=== PATIENT | female | born 1940 | race Caucasian/White ===

== ENCOUNTER → 2018-01-10 12:58 | Outpatient (CLI) | payer MEDICARE, SELFPAY ==
--- NOTE | 2018-01-10 13:03 | BI_ITS ---
MAMMOGRAPHY - BILATERAL SCREENING REASON FOR EXAM: Female, 77 years old. Routine annual screening examination. PERTINENT HISTORY: Sisters with breast cancer. TECHNIQUE: Digital bilateral breast key (3D mammographic acquisition) in the CC and MLO projections. 2-D mediolateral oblique (MLO) and craniocaudad (CC) views of both breasts were obtained. CAD: Full Field Digital Mammography with Computer Added Detection was performed. COMPARISON: Comparison is made with prior study dated October 29, 2016 and September 11, 2015. FINDINGS: Breast Composition: There are scattered areas of fibroglandular density. There are no dominant masses or suspicious calcifications. Stable benign-appearing bilateral axillary lymph nodes. No other significant abnormalities are identified. There has been no significant change since the prior study. BI/SCREENING MAMM (CAD), BILAT IMPRESSION: Stable bilateral screening mammogram. Yearly follow-up mammogram recommended. (A) ASSESSMENT CATEGORY: BIRADS Category 2: Benign. A letter regarding these results will be sent to the patient by the facility within 30 days. Approximately 10% of breast cancers are not detected by mammography. A normal mammogram should not delay biopsy of a clinically suspicious abnormality. [id number] Electronically Signed: Abrahan Munson MD at 14:20 EDT Tel [phone], Service support ,
== END ==
PROVIDERS: Family Provider Family Medicine; PCP Family Medicine; Visit Provider Family Medicine
DX: Z12.31 Encounter for screening mammogram for malignant neoplasm of breast (principal)
CPT/HCPCS: 77063; 77067

== ENCOUNTER → 2018-12-19 | Outpatient (CLI) | payer MEDICARE, SELFPAY ==
[2018-12-19 15:35] LABS: Absolute Lymphocyte Count 2.41 X10^3/ul (0.83-4.51); Absolute Neutrophil Count 4.9 X10^3/uL (2.0-7.7); Basophil# 0.02 X10^3/uL; Basophil% 0.2 % (0-1); Eosinophil# 0.34 X10^3/uL; Eosinophils% 4.1 % (0-5); Hematocrit 41.3 % (37-47); Hemoglobin 13.4 g/dl (12.0-15.0); Lymphocyte # 2.41 X10^3/ul (4.0); Lymphocyte % 28.8 % (19-41); Mean Corp Hgb Conc 32.4 g/gl (32-36); Mean Corpuscular Volume 92.4 fL (81-99); Mean Platelet Vol. 10.5 fl (6.2-12.0); Monocyte% 8.4 % (0-10); Neutrophil # 4.89 X10^3/uL (2.7-7.7); Neutrophil % 58.4 % (47-70); Platelet Count 252 K/mm3 (150-450); RBC Distribution Width CV 13.1 % (11.6-14.6); RBC Distribution Width SD 43.9 fl (35.1-43.9); Red Blood Count 4.47 M/mm3 (4.2-5.4); White Blood Count 8.4 K/mm3 (4.4-11.0)
[2018-12-19 15:50] LABS: POSITIVE COUNT NO; POSITIVE DIFFERENTIAL NO; POSITIVE MORPHOLOGY NO
[2018-12-19 15:56] LABS: ALB/GLOB Ratio 1.1 RATIO (0.9-2.4); AST(SGOT) 25 U/L (15-37); Alanine Aminotransfer ALT/SGPT 30 U/L (13-56); Albumin, Serum 4.1 g/dL (3.2-5.0); Alkaline Phosphatase 55 U/L (45-117); Anion Gap 7 (5-15); BUN 15 mg/dL (7-18); Chloride 107 mmol/L (98-107); Creatinine, Serum 0.88 mg/dL (0.55-1.02); EST Glomerular Filtration Rate 66 mL/min (>60); Est Glom Filt Rate - Afr Amer 80 mL/min (>60); Globulin 3.6 g/dL (2.2-4.2); Glucose 86 mg/dL (74-106); Potassium 4.6 mmol/L (3.5-5.1); Protein, Total 7.7 g/dL (6.4-8.2); Sodium Level 140 mmol/L (136-145); Thyroid Stim Hormone (TSH) 2.25 uIU/mL (0.358-3.74)
== END | disposition home or self-care (01) ==
LOC: BFHLAB 11:30
PROVIDERS: Family Provider Family Medicine; PCP Family Medicine; Visit Provider Family Medicine
DX: R50.9 Fever, unspecified (principal); F41.9 Anxiety disorder, unspecified
CPT/HCPCS: 36415; 80053; 84443; 85025

== ENCOUNTER → 2019-03-07 | Outpatient (CLI) | payer MEDICARE, SELFPAY ==
--- NOTE | 2019-03-07 15:46 | BI_ITS ---
MAMMOGRAPHY - BILATERAL SCREENING REASON FOR EXAM: Female, 78 years old. Routine annual screening examination. PERTINENT HISTORY: Sisters with breast cancer. Aunt with breast cancer. Remote right excisional breast biopsy. TECHNIQUE: Digital bilateral breast jerica (3D mammographic acquisition) in the CC and MLO projections. 2-D mediolateral oblique (MLO) and craniocaudad (CC) views of both breasts were obtained. CAD: Full Field Digital Mammography with Computer Added Detection was performed. COMPARISON: Comparison is made with prior examination dated January 10, 2018 and October 29, 2016. FINDINGS: Breast Composition: There are scattered areas of fibroglandular density. There is a 4.4 mm x 4 mm nodular density in the deep slightly inferior medial portion of the right breast. Correlation with ultrasound is recommended. Stable benign-appearing bilateral axillary lymph nodes. No other significant abnormalities are identified. BI/SCREEN MAMM (CAD) W/JERICA BILAT IMPRESSION: 4 mm x 4.4 mm nodular density in the deep slightly inferior medial aspect of the right breast. Correlation with ultrasound is recommended. ASSESSMENT CATEGORY: BIRADS Category 0: Incomplete. Need additional imaging evaluation. A letter regarding these results will be sent to the patient by the facility within 30 days. Approximately 10% of breast cancers are not detected by mammography. A normal mammogram should not delay biopsy of a clinically suspicious abnormality. [id number] Electronically Signed: Abrahan Munson, at 8:38 EDT , Service support ,
== END | disposition home or self-care (01) ==
LOC: OPBI 15:44
PROVIDERS: Family Provider Family Medicine; PCP Family Medicine; Referring Provider Family Medicine; Visit Provider Family Medicine
DX: Z12.31 Encounter for screening mammogram for malignant neoplasm of breast (principal)
CPT/HCPCS: 77063; 77067

== ENCOUNTER → 2019-03-14 | Outpatient (CLI) | payer MEDICARE, SELFPAY ==
--- NOTE | 2019-03-14 08:34 | US_ITS ---
STUDY: ULTRASOUND BREAST - RIGHT REASON FOR EXAM: Female, 79 years old. Abnormal screening mammogram. TECHNIQUE: Axial and longitudinal images of the RIGHT breast were performed with a high resolution ultrasound transducer. COMPARISON: Comparison is made with prior mammogram dated March 07, 2019 FINDINGS: RIGHT Breast: The mammographic abnormality corresponds to a 4 mm x 4 mm x 3 mm cyst at the 4:00 position in the breast at 3 cm from nipple. US/Breast Limited Unilateral IMPRESSION: 4 mm x 4 mm x 3 mm cyst at the 4:00 position breast at 3 cm from nipple. ASSESSMENT CATEGORY: BIRADS Category 2: Benign. A letter regarding these results will be sent to the patient by the facility within 30 days. Electronically Signed: Abrahan Munson, at 11:52 EDT , Service support ,
== END | disposition home or self-care (01) ==
LOC: OPUS 08:33
PROVIDERS: Family Provider Family Medicine; PCP Family Medicine; Referring Provider Family Medicine; Visit Provider Family Medicine
DX: R92.8 Other abnormal and inconclusive findings on diagnostic imaging of breast (principal)
CPT/HCPCS: 76642

== ENCOUNTER → 2020-03-28 | Outpatient (CLI) | payer MEDICARE, SELFPAY ==
--- NOTE | 2020-03-28 09:30 | BI_ITS ---
MAMMOGRAPHY - BILATERAL DIAGNOSTIC REASON FOR EXAM: Female, 80 years old. Right breast nodule. PERTINENT HISTORY: TECHNIQUE: Digital bilateral breast key (3D mammographic acquisition) in the CC and MLO projections. 2-D mediolateral oblique (MLO) and craniocaudad (CC) views of both breasts were obtained. CAD: Full Field Digital Mammography with Computer Added Detection was performed. COMPARISON: Comparison is made with prior study dated 03/07/2019 and 01/10/2018. FINDINGS: Breast Composition: There are scattered areas of fibroglandular density. There are no dominant masses or suspicious calcifications. 4 mm x 4.4 mm nodule in the deep inferior medial aspect of the right breast. Correlation with ultrasound is recommended. No other significant abnormalities are identified. There has been no significant change since the prior study. BI/DIAG MAMM W/CAD, BILAT IMPRESSION: Stable bilateral diagnostic mammogram. Correlation with ultrasound of the nodular density in the deep inferior medial portion of the right breast is recommended. ASSESSMENT CATEGORY: BIRADS Category 0: Incomplete. Need additional imaging evaluation. A letter regarding these results will be sent to the patient by the facility within 30 days. Approximately 10% of breast cancers are not detected by mammography. A normal mammogram should not delay biopsy of a clinically suspicious abnormality. Electronically Signed: Abrahan Munson, at 11:13 EDT , Service support ,
--- NOTE | 2020-03-28 09:30 | US_ITS ---
STUDY: ULTRASOUND BREAST - RIGHT REASON FOR EXAM: Female, 80 years old. Abnormal screening mammogram. TECHNIQUE: Axial and longitudinal images of the RIGHT breast were performed with a high resolution ultrasound transducer. # OF IMAGES: 53 COMPARISON: Comparison is made with prior mammogram dated 03/07/2019 and 03/28/2020. FINDINGS: RIGHT Breast: The mammographic abnormality corresponds to a 4 mm x 4 mm x 16: Inhomogeneous nodule at the 4 o''clock position of the breast at 4 cm from nipple. The nodule is taller than it is wide. Posterior acoustical shadowing is seen. A biopsy is recommended. US/Breast Limited Unilateral IMPRESSION: 4 mm x 4 mm x 6 mm hypoechoic solid nodule at the 4 o''clock position of the breast at 4 cm from the nipple. A biopsy recommended. ASSESSMENT CATEGORY: BIRADS Category 4: Suspicious - Biopsy Should Be Considered. A letter regarding these results will be sent to the patient by the facility within 30 days. Electronically Signed: Abrahan Munson, at 11:04 EDT , Service support ,
== END | disposition home or self-care (01) ==
PROVIDERS: PCP Family Medicine; Referring Provider Family Medicine; Visit Provider Family Medicine
DX: N60.01 Solitary cyst of right breast (principal)
CPT/HCPCS: 76642; 77062; 77066; G0279

== ENCOUNTER → 2020-05-09 | Outpatient (CLI) | payer MEDICARE, SELFPAY ==
--- NOTE | 2020-05-09 | IMM_PTH ---
PATIENT: JERO MAIER LOC: [facility] U#:[id number] AGE/SX: 80/F ROOM: RE05/09/[address]: Dr. Joel Holloway MD : 1940 BED: DIS: 05/09/2020 SPEC #: [id number] RECD: 05/10/20 13:48 STATUS: VIKAS REQ #: [id number] JAVAD: 05/09/20 00:[address]: Joel Holloway DEPT: IMMUNOHISTOCHEMISTRY RECD BY: Blaire Mendieta ENTERED: 05/10/20 13:49 SP TYPE: IMMUNO OTHR DR: Dr. Gary Bernal, DO Tissues: Right breast, NOS Procedures: CALPONIN-1 (add) CK5-6 (add) CK8 (add) E-CAD (add) HER2 PEDRO (add) KI-67 (add) P53 (add) IN (add) IN SITU HYBRIDIZATION P40 (add) ER (initial) PHYSICIAN & INSTITUTION [address] [address] SPECIMEN INFORMATION: Tissue Source: Right breast tissue Clinical Info: Abnormal right breast ultrasound Specimen Number: [id number] CPT code: 83137, 59298 x9, 56048 x2 METHODOLOGY: Deparaffinized sections of prefer/formalin-fixed tissue or PAP/DQ stained slides are incubated with monoclonal/polyclonal antibodies/oligonucleotide probes. Localization is made via biotin free immunoperoxidase method. Appropriate controls are performed and reacted as expected. Results on target cell population are indicated in the following table: RESULTS: ANTIBODY / CLONE RESULT E-Cad (ECH-6) positive CK8 ([id number]) positive Calponin-1 (QG465N) negative CK5-6 (D5 & 1684) negative P40 (BC28) negative P53 (DO-7) negative Ki-67 (30-9) positive, low MORPHOMETRIC ANALYSIS ER (clone 6F11) >95%, strong intensity IN (clone 16/1E2) >95%, strong intensity Her-2Neu (clone CB11) 1-2+ The prognostic test for HER2 is performed on formalin-fixed paraffin embedded tissue. A 3+ (positive) staining pattern is defined as intense, homogeneous, complete, circumferential membranous staining in >10% of contiguous tumor cells. A similar weak (2+) staining pattern is interpreted as equivocal. COURTNEY follow-up testing is recommended for all equivocal cases. Positivity/negativity for ER/IN is reported if > or < 1% of the tumor cells are immuno- reactive, respectively. The ASCO/CAP criteria is used for scoring. Reference: Journal of Clinical Oncology, 2013; 31:5120-1459 & 2010; 16:7484-0163. Duration of fixation: 11.5 Hrs; Sample Adequate: Yes. These assays have not been validated on decalcified tissues. Results should be interpreted with caution given the likelihood of false negativity on decalcified specimens. These tests were developed and their performance characteristics determined by [facility]. They may not have been cleared or approved by the U.S. Food and Drug Administration. The FDA has determined that such clearance or approval is not necessary. The above immunohistochemical/dualISH markers are ordered and reviewed by the Pathologist. INTERPRETATION: Right breast, core biopsy: Invasive ductal carcinoma, nuclear grade 2. Positive for estrogen receptors (favorable prognostic indicator). Positive for progesterone receptors (favorable prognostic indicator). Equivocal for overexpression of KMC8obj. SJ:kash 05/13/20 ADDENDUM ADDENDUM ADDENDUM ADDENDUM ADDENDUM ADDENDUM ADDENDUM ADDENDUM ADDENDUM ADDENDUM ADDENDUM ADDENDUM ADDENDUM ADDENDUM ADDENDUM ADDENDUM ADDENDUM ADDENDUM ADDENDUM ADDENDUM ADDENDUM ADDENDUM 05/20/2020 13:22 ADDENDUM 05/20/2020 13:22 ADDENDUM 05/20/2020 13:22 ADDENDUM 05/20/2020 13:22 ADDENDUM 05/20/2020 13:22 IN SITU HYBRIDIZATION (COURTNEY) FOR HER2 Interpretation: Not Amplified / Negative HER2 : CEP-17 Ratio: 1.7 Average HER2 Signal: 2.35 Average CEP-17 Signal: 1.35 Number of Tumor Cells Scanned: 50 Interpretative Information: The INFORM HER2 Dual COURTNEY DNA Probe Cocktail assay is performed on formalin-fixed paraffin embedded tissue and determines HER2 gene status by detecting HER2 copies via silver in situ hybridization (SISH) and Chromosome 17 copies via chromogenic red in situ hybridization on tumor cells. A minimum of 20 cells representing > 10% of contiguous and homogeneous invasive tumor cells were analyzed. HER2 gene status is classified as Non-amplified (HER2/Chr17 ratio < 2.0) or Amplified (HER2/Chr17 ratio greater than or equal to 2.0). If the resulting HER2/Chr17 ratio falls within 1.8 - 2.2 (Borderline), retesting by FISH is recommended. Reference: Meka AC, Macrina AMAYA, Donna DG, et al: Recommendations for Human Epidermal Growth Factor Receptor 2 Testing in Breast Cancer: [place] Society of Clinical Oncology / College of [place] [employer] Clinical Practice Guideline Update. J Clin Oncol 31:9003-1862, 2013. SJ:kash 05/20/20
--- NOTE | 2020-05-09 08:00 | BRBX_PTH ---
PATIENT: JERO MAIER LOC: [facility] U#:[id number] AGE/SX: 80/F ROOM: RE05/09/[address]: Dr. Joel Holloway MD : 1940 BED: DIS: 05/09/2020 SPEC #: [id number] RECD: 05/09/20 11:22 STATUS: VIKAS RECatherine #: [id number] JAVAD: 05/09/20 08:[address]: Joel Holloway DEPT: SURGICAL PATHOLOGY RECD BY: Concepcion Moffett ENTERED: 05/09/20 12:06 SP TYPE: BREAST BX OTHR DR: Dr. Gary Bernal, DO Tissues: Right breast, NOS Procedures: Surgery Specimen Level IV HEADER OPERATION: Right breast biopsy PRE-OP DIAGNOSIS: Abnormal right breast ultrasound TISSUE SUBMITTED: Right breast tissue FIXATION TIME: 11.5 hours MICROSCOPIC DIAGNOSIS Right breast, core biopsy: Invasive ductal carcinoma, nuclear grade 2 (0.6 cm in greatest length). See comment. SJ:kash 05/10/20 COMMENT Immunohistochemistry ([id number]) supports the above diagnosis. ER/OK/Gex7yle studies are being performed on sections of tumor and the results from this study will be reported separately ([id number]). MICROSCOPIC DESCRIPTION Slides are reviewed. GROSS DESCRIPTION Received in fixative is one container labeled with the patient's name and designated right breast. The specimen consists of multiple elongated fragments of light smith soft tissue that in aggregate measure 2 x 0.5 x 0.1 cm. The specimen is totally submitted in one cassette. / AM:kash 05/09/20 TC:0 CPT: 25224 ADDENDUM ADDENDUM ADDENDUM ADDENDUM ADDENDUM ADDENDUM ADDENDUM ADDENDUM 07/09/2020 08:57 ADDENDUM 07/09/2020 08:57 ADDENDUM 07/09/2020 08:57 ADDENDUM 07/09/2020 08:57 ADDENDUM 07/09/2020 08:57 An order for Oncotype testing was received from Dr. Smith. This necessitated case review, block and slide selection by pathologist at [facility]. Breast Cancer Recurrence Score = 8 Results of the complete Oncotype testing ([employer] report) are viewable in EMR under: Reports - Pathology - Lab Pathology Report, Scanned.
[2020-05-09 08:03] VITALS: BMI 33.0
== END | disposition home or self-care (01) ==
LOC: LABSPEC 11:34
PROVIDERS: PCP Family Medicine; Referring Provider Surgery; Visit Provider Surgery
DX: R92.8 Other abnormal and inconclusive findings on diagnostic imaging of breast (principal)
CPT/HCPCS: 88305; 88341; 88342; 88368

== ENCOUNTER 2020-05-28 07:20 | Day surgery (SDC) | payer MEDICARE, SELFPAY ==
[2020-05-16 07:57] VITALS: BMI 33.0
--- NOTE | 2020-05-24 10:02 | EKG12_ITS ---
Test Reason : PRE OP Blood Pressure : / mmHG Vent. Rate : 092 BPM Atrial Rate : 092 BPM P-R Int : 168 ms QRS Dur : 060 ms QT Int : 330 ms P-R-T Axes : 075 063 068 degrees QTc Int : 408 ms Normal sinus rhythm Right atrial enlargement Nonspecific ST abnormality Abnormal ECG Confirmed by DENISE GARRIDO, COLLEEN ([id number]), assistant editor SHANTI ECKERT ([id number]) on 05/27/2020 10:37:11 AM Referred By: Joel Holloway Confirmed By:COLLEEN WALKER MD
--- NOTE | 2020-05-24 10:12 | RAD_ITS ---
STUDY: X-RAY CHEST REASON FOR EXAM: Female, 80 years old. POST OP RIGHT BREAST CA, BREAST CANCER TECHNIQUE: PA and lateral views of the chest. COMPARISON: 06/08/2017 FINDINGS: There is hyperinflation of the lungs consistent with chronic obstructive lung disease (COPD). There is no demonstrated pleural abnormality. Normal size heart. Normal mediastinum and edwige. Normal visualized pulmonary arteries. Normal visualized aortic arch and descending thoracic aorta. Normal visualized thoracic spine. Normal visualized ribs, clavicles, and shoulders. There is no demonstrated abnormality of the visualized soft tissue structures of the upper abdomen. RAD/Chest PA and Lateral IMPRESSION: Emphysema without pneumonia or atelectasis Electronically Signed: Deepak Borrego MD at 17:34 EST Tel , Service support ,
[2020-05-24 11:16] LABS: Hematocrit 42.3 % (37-47); Hemoglobin 13.4 g/dL (12.0-15.0); Mean Corp Hgb Conc 31.7 g/dL (32-36); Mean Corpuscular Hgb 29.7 pg (27.0-32.0); Mean Corpuscular Volume 93.8 fL (81-99); Mean Platelet Vol. 9.7 fl (6.2-12.0); Platelet Count 325 K/mm3 (150-450); RBC Distribution Width CV 12.1 % (11.6-14.6); RBC Distribution Width SD 41.6 fl (35.1-43.9); Red Blood Count 4.51 M/mm3 (4.2-5.4); White Blood Count 8.2 K/mm3 (4.4-11.0)
[2020-05-24 11:53] LABS: ALB/GLOB Ratio 1.2 RATIO (0.9-2.4); AST(SGOT) 23 U/L (15-37); Alanine Aminotransfer ALT/SGPT 32 U/L (13-56); Albumin, Serum 4.3 g/dL (3.2-5.0); Alkaline Phosphatase 62 U/L (45-117); Anion Gap 5 (5-15); BUN 16 mg/dL (7-18); Calcium,Total 10.1 mg/dL (8.5-10.1); Chloride 107 mmol/L (98-107); Creatinine, Serum 0.94 mg/dL (0.55-1.02); EST Glomerular Filtration Rate 61 mL/min (>60); Est Glom Filt Rate - Afr Amer 74 mL/min (>60); Globulin 3.7 g/dL (2.2-4.2); Glucose 101 mg/dL (74-106); Potassium 4.2 mmol/L (3.5-5.1); Sodium Level 137 mmol/L (136-145)
[2020-05-28] VITALS (7 sets, daily range): BP systolic 150–168; BP diastolic 65–102; PULSE 93–100; RESP 14–18; TEMP 36.3–37.2; O2SAT 88–98; BMI 33.3
--- NOTE | 2020-05-28 | AXNB_PTH ---
PATIENT: JERO MAIER LOC: [facility] [place] U#:[id number] AGE/SX: 80/F ROOM: RE05/28/[address]: Dr. Joel Holloway MD : 1940 BED: DIS: 05/28/2020 SPEC #: [id number] RECD: 05/28/20 12:01 STATUS: VIKAS RECatherine #: [id number] JAVAD: 05/28/20 00:[address]: Joel Holloway DEPT: SURGICAL PATHOLOGY RECD BY: Neel Mahmood ENTERED: 05/28/20 12:02 SP TYPE: AX NODE BX OTHR DR: Dr. Gary Bernal, DO Tissues: A - Axillary lymph node, NOS B - Right breast, NOS Procedures: Frozen Section (charge) Frozen Section Add'l ([facility]) Surgery Specimen Level V HEADER OPERATION: Stereotactic wire localization lumpectomy with sentinel lymph node biopsy PRE-OP DIAGNOSIS: Malignant neoplasm of lower inner quadrant right breast, ER positive TISSUE SUBMITTED: A - Right axillary sentinel lymph node, FS, B - Right breast, wire - medial, short suture - anterior, long suture - superior FROZEN SECTION DIAGNOSIS A. Right axillary sentinel lymph nodes, biopsy: Five out of five lymph nodes negative for carcinoma. AM:kash 05/28/20 MICROSCOPIC DIAGNOSIS A. Right axillary sentinel lymph nodes, biopsy: Five out of five lymph nodes, negative for metastatic carcinoma. See comment. B. Right breast, lumpectomy with needle localization: Invasive ductal carcinoma. See cancer summary in the comment section. SJ:kash 06/03/20 COMMENT INVASIVE BREAST CANCER SUMMARY Procedure - lumpectomy with needle localization Specimen laterality - right Invasive tumor: Tumor site - lower inner quadrant as per clinical information. Tumor size - 0.6 x 0.5 cm (measured microscopically). The tumor size is smaller than grossly measured size. Histologic type - invasive ductal carcinoma, not otherwise specified Histologic grade (Bernarda grade): Glandular/tubular differentiation score - 3 Nuclear pleomorphism score - 2 Mitotic count score - 1 Overall grade - grade 2 (score of 6) Tumor focality - single focus of invasive carcinoma Ductal Carcinoma In Situ - not identified Lobular Carcinoma In Situ - not identified Tumor extension: Skin - not present Nipple - not applicable Skeletal muscle - not identified Margins - the tumor is 0.7 cm away from the closest inferior margin. Regional Lymph Nodes: Total number of lymph nodes examined - 5 Number of lymph nodes with macrometastases, micrometastases or isolated tumor cells - 0 Treatment effect - no known presurgical therapy. Lymphvascular invasion - not identified Dermal lymphvascular invasion - not applicable Distant metastasis - not applicable Additional Pathologic Findings - mild fibrocystic changes. Ancillary Studies: Previously performed on same tumor ([id number] / [id number]) ER: Positive (<95%, strong intensity) [place]: Positive (<95%, strong intensity) Etm8ldv by IHC: Equivocal (1-2+) Ewj3rxz by COURTNEY: Negative, not amplified Microcalcifications - not identified Clinical History - Please make reference to previous specimen ([id number]) right breast, core biopsy with diagnosis of invasive ductal carcinoma, nuclear grade 2 (0.6 cm in greatest length). Pathologic Stage: pT1b pN0 MX The above summary is in compliance with [employer] of [place] [employer] (CAP) Cancer Protocols Checklist and [place] Joint Committee on Cancer (AJCC), Staging Manual, 8th Ed. A. The lymph nodes are negative for metastatic carcinoma on multiple levels and Immunohistochemistry for cytokerains.([id number]). MICROSCOPIC DESCRIPTION Slides are reviewed. GROSS DESCRIPTION A - Received fresh for frozen section diagnosis labeled with the patient's name is a specimen designated right axillary sentinel lymph nodes. The specimen consists of a piece of adipose tissue containing multiple nodules measuring 6 x 3 x 2 cm. The nodules consistent with lymph nodes measure 2 cm in greatest dimension. The lymph nodes are submitted in entirety for frozen section diagnosis in four cassettes as follows: 1 - two lymph nodes, 2 - one lymph node, 3 - one lymph node, 4 - one lymph node. / AM:kash 05/28/20 B - Received fresh for OR consultation labeled with the patient's name is a specimen designated right breast. The specimen consists of a wire-guided lumpectomy specimen measuring 8.5 x 6 x 2 cm and weighing 41 gm. The specimen is differentially inked as follows: anterior - yellow, posterior - black, superior - blue, inferior - green, medial - red and lateral - orange. Serial sections reveal a firm, smith-white lesion measuring 1 x 0.6 x 0.5 cm. This lesion is located 0.3 cm from its closest (inferior) margin of resection. The proximity of the lesion to the closest margin is conveyed to the surgeon intraoperatively. / AM:kash 05/28/20 Sections of the rest of the specimen reveal smith-yellow adipose cut surfaces mixed with scant fibrous areas. Catering Service Manager sections are submitted in 12 cassettes as follows: 1 - perpendicular medial, lateral and posterior margins, 2 - perpendicular anterior and superior margins, 3 & 4 - entire tumor with closest inferior margin, 5-12 - account manager sales representative sections adjacent and away from the tumor. Sections are submitted after additional fixation. The tumor is submitted in entirety. / SJ:kash 05/29/20 TC:0 CPT: 08441, 38564 x3, 03013 x2, 45113
--- NOTE | 2020-05-28 | IMM_PTH ---
PATIENT: JERO MIAER LOC: [facility] [place] U#:[id number] AGE/SX: 80/F ROOM: RE05/28/[address]: Dr. Joel Holloway MD : 1940 BED: DIS: 05/28/2020 SPEC #: [id number] RECD: 06/03/20 12:28 STATUS: VIKAS REQ #: [id number] JAVAD: 05/28/20 00:[address]: Joel Holloway DEPT: IMMUNOHISTOCHEMISTRY RECD BY: Blaire Mendieta ENTERED: 06/03/20 12:31 SP TYPE: IMMUNO OTHR DR: Dr. Gary Bernal, DO Tissues: A - Axillary lymph node, NOS Procedures: CK7 (add) Pankeratin (initial) Pankeratin (add) PHYSICIAN & INSTITUTION [place] [address] SPECIMEN INFORMATION: Tissue Source: A - Right axillary sentinel lymph nodes, biopsy Clinical Info: Malignant neoplasm of lower inner quadrant right breast, ER positive Specimen Number: [id number] A1-A4 CPT code: 15042, 64414 x7 METHODOLOGY: Deparaffinized sections of prefer/formalin-fixed tissue or PAP/DQ stained slides are incubated with monoclonal/polyclonal antibodies/oligonucleotide probes. Localization is made via biotin free immunoperoxidase method. Appropriate controls are performed and reacted as expected. Results on target cell population are indicated in the following table: RESULTS: ANTIBODY / CLONE RESULT Block A1 AE1-3 (AE1/AE3/PCK26) negative CK7 (OV-TL12/30) negative Block A2 AE1-3 (AE1/AE3/PCK26) negative CK7 (OV-TL12/30) negative Block A3 AE1-3 (AE1/AE3/PCK26) negative CK7 (OV-TL12/30) negative Block A4 AE1-3 (AE1/AE3/PCK26) negative CK7 (OV-TL12/30) negative These tests were developed and their performance characteristics determined by [facility]. They may not have been cleared or approved by the U.S. Food and Drug Administration. The FDA has determined that such clearance or approval is not necessary. The above immunohistochemical/dualISH markers are ordered and reviewed by the Pathologist. INTERPRETATION: A. Right axillary sentinel lymph nodes, biopsy: Five out of five lymph nodes, negative for metastatic carcinoma. SJ:kash 06/04/20
--- NOTE | 2020-05-28 08:00 | NM_ITS ---
EXAM DESCRIPTION: CLINICAL HISTORY: 80 years Female, Rt breast cancer COMPARISON: None. TECHNIQUE: 1 mCi of technetium 9M filtered sulfur colloid was injected in 4 divided doses in a right periareolar distribution. FINDINGS: The injections were performed in the patient targeted procedure well and was then sent to surgery for breast surgery and lymphatic dissection NM/Lymph Node Injection Only IMPRESSION: 1 mCi of technetium tagged sulfur colloid was subcutaneously injected as described above. Electronically Signed: Anish Roman, at 15:14 EST Tel , Service support ,
[2020-05-28] MEDS: Lactated Ringers 1,000 ML 100 ML IV ×2 (08:10→11:44)
--- NOTE | 2020-05-28 08:56 | BI_ITS ---
SURGICAL BREAST SPECIMEN RADIOGRAPH CLINICAL: Document presence of right breast biopsy specimen. FINDINGS: Specimen shows presence of a localization wire and 2 localization clips in a mass in the right breast lumpectomy specimen. Pathology is pending and an addendum to the biopsy report will be performed after the final pathologic diagnosis is rendered. Electronically Signed: Anish Roman, at 17:21 EST Tel , Service support , BI/Breast Biopsy Specimen
--- NOTE | 2020-05-28 09:37 | PCM.HP.BLA ---
Problem List (1) Breast cancer Status: Acute Qualifiers: History and Physical Date of Admission: 05/28/20 Intake Visit Reasons: Discuss Breast Biopsy Results Chief Complaint: Post op R breast bx-05/09 Body Maker Required: No Is patient in pain?: No Allergies No Known Allergies Allergy (Verified 05/16/20 08:00) Medications omeprazole 10 mg capsule,delayed release 10 mg PO DAILY 05/09/20 [History Confirmed 05/16/20] paroxetine HCl 10 mg tablet tab PO 05/09/20 [History Confirmed 05/16/20] PFSH Medical History Abnormal mammogram of right breast (Acute) Basal cell carcinoma (Acute) Anxiety (Acute) GERD (gastroesophageal reflux disease) (Chronic) Depression (Chronic) Surgical History Hx of breast biopsy (Acute) History of partial hysterectomy (Acute) History of cardiac catheterization (Acute) Family History Father Cancer kidney Mother Diabetes Heart disease Sister Breast cancer Sister Breast cancer Sister Breast cancer Sister Breast cancer Social History (Updated 05/16/20 @ 08:[address] Joel Holloway MD) Smoking Status: Never smoker HPI HPI HPI: JERO MAIER, is a 80 F who presents to the office today for surgical follow-up and discussion regarding a BI-RADS Category 4 density lower inner right breast 3:30 position +4 cm. On May 09, 2020 I did an office consultation and a combined ultrasound-guided needle core biopsy lower inner right breast. 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 0.6 cm in length. Estrogen receptor was greater than 95%. Progesterone receptor greater than 95%. HER-2/martin 1-2+. Intake Visit Reasons: SECOND OPINION/ RIGHT BREAST BIRADS 4 Chief Complaint: abn breast US right Body Maker Required: No Is patient in pain?: No Allergies No Known Allergies Allergy (Verified 05/09/20 08:02) Medications omeprazole 10 mg capsule,delayed release 10 mg PO DAILY 05/09/20 [History Confirmed 05/09/20] paroxetine HCl 10 mg tablet tab PO 05/09/20 [History Confirmed 05/09/20] Is last menstrual period known: No Post menopausal: Yes Patient : No PFSH Medical History (Updated 05/09/20 @ 08:[address] Joel Holloway MD) Abnormal mammogram of right breast (Acute) Basal cell carcinoma (Acute) Anxiety (Acute) GERD (gastroesophageal reflux disease) (Chronic) Depression (Chronic) Surgical History (Updated 05/09/20 @ 07:52 by Maki Hernández) History of partial hysterectomy (Acute) History of cardiac catheterization (Acute) Family History (Updated 05/09/20 @ 08:05 by Maki Hernández) Father Cancer kidney Mother Diabetes Heart disease Sister Breast cancer Sister Breast cancer Sister Breast cancer Sister Breast cancer Social History (Updated 05/09/20 @ 08:[address] Joel Holloway MD) Smoking Status: Never smoker HPI HPI HPI: JERO MAIER, is a 80 F who presents to the office today for surgical consultation regarding abnormal right mammogram and ultrasound. The patient is referred at her own request and by the assistance of Dr. Gary Bernal and a written copy of my surgical consult recommendations will return to him. 80-year-old female. A0. Menarche at age 12. First I was born when she was 18. She did breast-feed. She has 4 sisters all who had breast cancer. She denies any nipple discharge or bleeding. She herself cannot palpate any masses. She has not been on any estrogen replacement therapy. She states that she does wear a mask in public. She denies fever or chills or cough. She states that each winter she will develop a degree of shortness of breath. She has not had any new or acute change this fall. [facility] Imaging Services [address] [place] [address] SCREEN MAMM (CAD) W/JERICA BILAT MR#: [id number] Name: JERO MAIER CRe #:[id number] : 1940F [id number] From: Abrahan Munson MD PCP:Gary Bernal DO Status:REG CLI Study:SCREEN MAMM (CAD) W/JERICA BILAT Date of Exam:03/07/19 Exam#[id number] Ordering Dr: Gary Bernal DO MAMMOGRAPHY - BILATERAL SCREENING REASON FOR EXAM: Female, 78 years old. Routine annual screening examination. PERTINENT HISTORY: Sisters with breast cancer. Aunt with breast cancer. Remote right excisional breast biopsy. TECHNIQUE: Digital bilateral breast jerica (3D mammographic acquisition) in the CC and MLO projections. 2-D mediolateral oblique (MLO) and craniocaudad (CC) views of both breasts were obtained. CAD: Full Field Digital Mammography with Computer Added Detection was performed. COMPARISON: Comparison is made with prior examination dated January 10, 2018 and October 29, 2016. FINDINGS: Breast Composition: There are scattered areas of fibroglandular density. There is a 4.4 mm x 4 mm nodular density in the deep slightly inferior medial portion of the right breast. Correlation with ultrasound is recommended. Stable benign-appearing bilateral axillary lymph nodes. No other significant abnormalities are identified. BI/SCREEN MAMM (CAD) W/JERICA BILAT IMPRESSION: 4 mm x 4.4 mm nodular density in the deep slightly inferior medial aspect of the right breast. Correlation with ultrasound is recommended. ASSESSMENT CATEGORY: BIRADS Category 0: Incomplete. Need additional imaging evaluation. A letter regarding these results will be sent to the patient by the facility within 30 days. Approximately 10% of breast cancers are not detected by mammography. A normal mammogram should not delay biopsy of a clinically suspicious abnormality. [id number] Electronically Signed: Abrahan Munson, at 8:38 EDT , Service support , Diagnostic [facility] Imaging Services [address] [place] [address] DIAG MAMM W/CAD, BILAT MR#: [id number] Name: JERO MAIER #:[id number] : [id number] From: Abrahan Munson MD PCP:Dr. Gary Bernal, Status:REG CLI Study:DIAG MAMM W/CAD, BILAT Date of Exam:03/28/20 Exam#[id number] Ordering Dr: Gary Bernal DO MAMMOGRAPHY - BILATERAL DIAGNOSTIC REASON FOR EXAM: Female, 80 years old. Right breast nodule. PERTINENT HISTORY: TECHNIQUE: Digital bilateral breast jerica (3D mammographic acquisition) in the CC and MLO projections. 2-D mediolateral oblique (MLO) and craniocaudad (CC) views of both breasts were obtained. CAD: Full Field Digital Mammography with Computer Added Detection was performed. COMPARISON: Comparison is made with prior study dated 03/07/2019 and 01/10/2018. FINDINGS: Breast Composition: There are scattered areas of fibroglandular density. There are no dominant masses or suspicious calcifications. 4 mm x 4.4 mm nodule in the deep inferior medial aspect of the right breast. Correlation with ultrasound is recommended. No other significant abnormalities are identified. There has been no significant change since the prior study. BI/DIAG MAMM W/CAD, BILAT IMPRESSION: Stable bilateral diagnostic mammogram. Correlation with ultrasound of the nodular density in the deep inferior medial portion of the right breast is recommended. ASSESSMENT CATEGORY: BIRADS Category 0: Incomplete. Need additional imaging evaluation. A letter regarding these results will be sent to the patient by the facility within 30 days. Approximately 10% of breast cancers are not detected by mammography. A normal mammogram should not delay biopsy of a clinically suspicious abnormality. Electronically Signed: Abrahan Munson, at 11:13 EDT , Service support , [facility] Imaging Services [address] [place] [id number] Breast Limited Unilateral MR#: [id number] Name: JERO MAIER #:[id number] : [id number] From: Abrahan Munson MD PCP:Dr. Gary Bernal, DO Status:REG CLI Study:Breast Limited Unilateral Date of Exam:03/28/20 Exam#[id number] Ordering Dr: Gary Bernal DO STUDY: ULTRASOUND BREAST - RIGHT REASON FOR EXAM: Female, 80 years old. Abnormal screening mammogram. TECHNIQUE: Axial and longitudinal images of the RIGHT breast were performed with a high resolution ultrasound transducer. # OF IMAGES: [id number] COMPARISON: Comparison is made with prior mammogram dated 03/07/2019 and 03/28/2020. FINDINGS: RIGHT Breast: The mammographic abnormality corresponds to a 4 mm x 4 mm x 16: Inhomogeneous nodule at the 4 o''clock position of the breast at 4 cm from nipple. The nodule is taller than it is wide. Posterior acoustical shadowing is seen. A biopsy is recommended. US/Breast Limited Unilateral IMPRESSION: 4 mm x 4 mm x 6 mm hypoechoic solid nodule at the 4 o''clock position of the breast at 4 cm from the nipple. A biopsy recommended. ASSESSMENT CATEGORY: BIRADS Category 4: Suspicious - Biopsy Should Be Considered. A letter regarding these results will be sent to the patient by the facility within 30 days. Electronically Signed: Abrahan Munson, HPI HPI HPI: JERO MAIER, is a 80 F who presents to the office today for ROS General General: No weight change, appetite, fatigue, colon cancer, breast cancer or weakness HEENT HEENT: Yes eye surgery; no difficulty swallowing, eye injury, swollen glands or hoarseness Endo Endocrine: No thyroid disease, diabetes mellitus, thyroid cancer, Hair loss, heat intolerance or cold intolerance Breast Breast: Yes abnormal mammogram and abnormal US; no left breast lump, right breast lump, nipple discharge, breast pain or breast enlargement Musc Musculoskeletal: No back problems, arthritis, rheumatoid arthritis, gout or joint pain Cardio Cardiovascular: No murmur, pacemaker, heart disease, atrial fibrillation, high blood pressure, heart attack, heart stent, palpitations, shortness of breat with exertion or chest pain Psych Psychiatric: Yes depression and anxiety; no hearing voices Resp Respiratory: Yes shortness of breath, No sleep apnea, No cough, No COPD, No asthma, No emphysema, No wheezing Gastro Gastrointestinal: No abdominal pain, No nausea or vomiting, No diarrhea, No constipation, No blood in stool, Yes acid reflux, No hemorrhoids, No ulcers, No gallbladder problem, No black,tarry stools Oli Hematologic: No blood thinners, No blood disorders, No bleeding, No anemia, No blood clots Neuro Neurologic: No weakness Exam Const General: cooperative, healthy appearing, comfortable, no acute distress Nutritional Appearance: obese Orientation: alert, awake HENCA Head: normal to inspection Eyes General: appearance normal, both eyes and all related structures Chest Breast Palpation: No nipple discharge Other: Right breast: No focal mass, no nipple discharge, no axillary or clavicular adenopathy Left breast: No focal mass. No nipple discharge. No axillary or clavicular adenopathy Resp Effort & Inspection: normal respiratory effort Auscultation: clear to auscultation bilaterally Cardio Rate: regular rate Rhythm: regular rhythm Heart Sounds: no murmurs GI Palpation: soft, no hepatosplenomegaly Neuro General: alert Extrem General: no calf tenderness Psych Affect: normal affect Office Procedures Biopsy Provider Documentation Ultrasound-guided needle core biopsy right breast 3:30 position +5 cm Timeout and informed consent was obtained. 80-year-old female was taken to the procedure room placed supine the table slight Trendelenburg. The medial right breast was sterilely prepped and draped. The lesion in question actually was slightly higher and more medially placed than anticipated. I estimated to be approximately 330 position +5 cm. Under ultrasound guidance 1% lidocaine mixed 50-50 with 0.5% Marcaine was instilled as a local anesthetic. A total of 8 cc was used. A small stab incision was created. A 14-gauge Monopty needle was advanced to prefire depth. Pre and post fire films were obtained. 2 marking clips were left in position because I had difficulty seeing the first 1. Pressure was held for hemostasis. 4 separate cores were obtained and these were submitted in formalin for analysis. Steri-Strip Telfa OpSite dressings applied. She was given activity and wound care instructions. She is scheduled return to our office next week for follow-up. Joel Holloway M.D., F.A.C.S. Biopsy Breast Biopsy: [id number] US Guidance Procedure Time Out Time Out Informed consent given: Yes Consent signed: Yes Time out checklist: patient, procedure, site marked/identified, positioning of patient, supplies available, allergies confirmed, team agrees on procedure Time out staff in room: Yes Time out verified: Yes Time out date: 05/09/20 Time out time: 08:06 Assessment & Plan Problems 1. Abnormal mammogram of right breast R92.8 Plan I believe that I have successfully performed today an ultrasound-guided needle core biopsy right breast 3:30 position +5 cm. She tolerated it well. Specimens are submitted in formalin. She will return to my office to discuss pathology next week. I do have concerns regarding the potential etiology of this lesion. Copy: Dr. Gary Holloway M.D., F.A.C.S. Orders Orders: Biopsy Today R92.8 Coding Level of Care Code Attention Roberth Diagnoses Abnormal mammogram of right breast R92.8 Additional Codes Biopsy - Breast Biopsy: [id number] US Guidance (37988) HPI HPI HPI: JERO MAIER, is a 80 F who presents to the office today for ROS General General: No weight change, appetite, fatigue, colon cancer, breast cancer or weakness HEENT HEENT: Yes eye surgery; no difficulty swallowing, eye injury, swollen glands or hoarseness Endo Endocrine: No thyroid disease, diabetes mellitus, thyroid cancer, Hair loss, heat intolerance or cold intolerance Breast Breast: Yes abnormal mammogram and abnormal US; no left breast lump, right breast lump, nipple discharge, breast pain or breast enlargement Musc Musculoskeletal: No back problems, arthritis, rheumatoid arthritis, gout or joint pain Cardio Cardiovascular: No murmur, pacemaker, heart disease, atrial fibrillation, high blood pressure, heart attack, heart stent, palpitations, shortness of breat with exertion or chest pain Psych Psychiatric: Yes depression and anxiety; no hearing voices Resp Respiratory: Yes shortness of breath, No sleep apnea, No cough, No COPD, No asthma, No emphysema, No wheezing Gastro Gastrointestinal: No abdominal pain, No nausea or vomiting, No diarrhea, No constipation, No blood in stool, Yes acid reflux, No hemorrhoids, No ulcers, No gallbladder problem, No black,tarry stools Oli Hematologic: No blood thinners, No blood disorders, No bleeding, No anemia, No blood clots Neuro Neurologic: No weakness Exam Chest Breast Palpation: No nipple discharge Other: Right breast biopsy site is healing well. There is a minimal amount of ecchymosis. No signs of infection. Nontender Cardio Heart Sounds: no murmurs Assessment & Plan Problems 1. Malignant neoplasm of lower-inner quadrant of right breast of female, estrogen receptor positive C50.311; Z17.0 Plan Invasive ductal carcinoma lower inner right breast. Very small lesion measuring approximately 4 mm. I recommend to the patient a stereotactic wire localization with wire localized lumpectomy and right axillary nuclear tracer and blue dye sentinel lymph node biopsy. I have discussed the technique, benefit, risk, alternatives. The patient is aware that I recommend postoperative hematology oncology and radiation oncology consultation. Depending upon the final size of the tumor she may or may not require radiotherapy. She has had an opportunity to ask and have questions answered. We will schedule procedure at her discretion. Copy: Dr. Gary Holloway M.D., F.A.C.S. Coding Level of Care Code Off vis,est,level 2 Diagnoses Malignant neoplasm of lower-inner quadrant of right breast of female, estrogen receptor positive C50.311; Z17.0 ??Breast location: lower inner quadrant of breast ??Estrogen receptor status: positive ??Patient sex: female ??Laterality: right I have re-examined the patient. There are no clinical changes since date of exam. Procedure Criteria Procedure Type: Elective COVID Risk Discussion: The surgeon/proceduralist and patient have discussed in detail the risk of exposure to and/or potential harm posed by the COVID-19 virus with having a surgery/procedure at this time versus the risk of delaying the surgery/procedure. It is not possible to know either the risk of delaying the surgery or procedure or chance of getting an infection with perfect accuracy, but a joint decision was made between the patient and the surgeon/proceduralist to proceed at this time with the scheduled surgery/procedure as indicated on the consent form.
--- NOTE | 2020-05-28 09:38 | DCINST_ITS ---
Discharge Diet: No Restrictions Discharge Activity: May Not Drive - for 2-3 days or while taking narcotic pain meds. May shower in (days): 1 Lifting Restrictions: 10 pounds for 1 week. Call your doctor if your incision/area has: Continuous Slow Oozing, Sudden In creased Bleeding Call your doctor if you observe: Fever of 101 or Higher Suture Line Care: Avoid Pulling/Pushing, Avoid Pinching/Bending Remove Dressing in (days):: 1 - Remove bulky dressing tomorrow. May leave any opsite dressing for 3-4 days[address] Keep dressing in place until your follow-up appointment. Additional Dressing/Incision Instructions:: Remove bulky dressing tomorrow. May leave any opsite dressing for 3-4 days. After you remove the plastic OpSite dressings you may leave the Steri-Strips in place for an additional 1 week and continue to shower over them. Allergies/Adverse Reactions: Allergies No Known Allergies Allergy (Verified 05/16/20 08:00) Medications to take at Discharge omeprazole 10 mg capsule,delayed release 20 mg PO QODAY 05/09/20 paroxetine HCl 10 mg tablet 10 tab PO DAILY 05/09/20 Primary Care Physician: Gary Bernal DO [Primary Care Provider] - Please Follow Up With: Joel Holloway MD - [phone] When: Office appt. in 10 days
--- NOTE | 2020-05-28 09:39 | PCM.OPRPT ---
Problem List (1) Breast cancer Status: Acute Qualifiers: Report of Operation Date of Procedure: 05/28/20 Pre-Operative Diagnosis: Invasive ductal carcinoma lower inner right breast Post-Operative Diagnosis: Same Surgery/Procedure Performed:: Stereotactic wire localization lower inner right breast. Right breast wire localized lumpectomy with blue dye and nuclear tracer right axillary sentinel lymph node biopsy Description of Surgical Findings:: Timeout and informed consent was obtained. 80-year-old female was taken to the stereotactic suite. She was placed prone on the table. The right breast was placed in the medial lateral view. The density in question with marking clips was identified. Stereotactic images were obtained. Digital information was obtained on a single target site. The breast was prepped with Betadine. 1% lidocaine was used as a local anesthetic. 1 cc was used. A Kopan's needle was advanced to depth +15 mm. The wire was displaced. On fast view demonstrated the wire to be in good position. Sterile dressings were applied. She was taken back to the amatory surgery area for planned definitive resection. The patient was taken to the operating room. She underwent general anesthesia. The right arm was carefully wrapped with soft roll and placed at right angles to the table. The right breast was prepped with alcohol. 2 cc of isosulfan blue dye was injected retroareolar massage was performed. Subsequently the right breast and axilla were sterilely prepped and draped. An oblique incision was made in the right axilla. Using a combination of blue dye tracking and nuclear tracer sentinel lymph nodes were identified. Using both the nuclear tracer and blue dye lymph nodes were identified in the right axilla. These were somewhat adherent so I did a slightly more extensive dissection. Electrocautery was used for hemostasis. Hemoclips were placed were indicated. The packet was removed and had a rather high nuclear return. X inspection of the axilla did not suggest significant residual amount. Specimens were sent for analysis. Then I made a transverse incision in the medial left breast based upon the wire. Tedious sharp and blunt dissection was identified because the tumor itself was not readily palpable. I performed a circumferential dissection completely excised the mass this went down to the pectoralis fascia. The wire exited medially a short suture was placed anterior and a long suture superiorly. Mammographic images were obtained showing the 2 marking clips and tumor to be present. Gross analysis revealed a 1 x 0.6 cm tumor with a 3 mm margin inferiorly. I placed for hemoclips at the margins of the tumor resection. Hemostasis was achieved electrocautery. That wound was then closed the deep layer of interrupted 3-0 Vicryl and then a running subcuticular 4-0 Monocryl. The axilla was reinspected and was noted to be dry and it too was closed with a deep layer of interrupted 3-0 Vicryl and then running subicular 4-0 Monocryl. Each site was anesthetized with 0.5% Marcaine. Throughout the procedure total 30 cc was used. Steri-Strips Telfa OpSite bulky dry dressing applied. Sponge and instrument and needle counts were reported to the surgeon to be correct. Blood loss minimal. She tolerated the procedure well was taken to the recovery area in satisfactory condition without apparent complication. Specimen right axillary sentinel lymph nodes and medial right breast lumpectomy. Drains none. Blood loss minimal. Joel Holloway M.D., F.A.C.S. Type of Anesthesia:: General Anesthesiologist: Zak Noriega
[2020-05-28] MEDS: Isosulfan Blue 1% 5 ML Vial (10:05)
[2020-05-28] MEDS: Bupivacaine Mpf 0.5% 30 ML VIAL (10:16)
== END 2020-05-28 13:19 | disposition home or self-care (01) ==
LOC: SDC 07:20 → AC 07:21
PROVIDERS: PCP Family Medicine; Referring Provider Surgery; Visit Provider Surgery
PROC: (CPT 19301; principal; 2020-05-28 09:45)
DX: C50.311 Malignant neoplasm of lower-inner quadrant of right female breast (principal); Z17.0 Estrogen receptor positive status [ER+]; F41.9 Anxiety disorder, unspecified; F32.9 Major depressive disorder, single episode, unspecified; K21.9 Gastro-esophageal reflux disease without esophagitis; R92.8 Other abnormal and inconclusive findings on diagnostic imaging of breast; Z79.899 Other long term (current) drug therapy; Z20.828 Contact with and (suspected) exposure to other viral communicable diseases; Z85.828 Personal history of other malignant neoplasm of skin; Z80.3 Family history of malignant neoplasm of breast
CPT/HCPCS: 00400; 19301; 38525; 19281; 36415; 38792; 71046; 76098; 80053; 85027; 87426; 88305; 88307; 88331; 88332; 88341; 88342; 93005; A9541; C9803; J7120; J2405; Q9968

== ENCOUNTER → 2020-06-27 09:55 | Outpatient (CLI) | payer MEDICARE, SELFPAY ==
[2020-06-17 09:19] VITALS: BMI 33.3
[2020-06-20 13:21] VITALS: BMI 34.5
--- NOTE | 2020-06-27 10:00 | BD_ITS ---
STUDY: DUAL ENERGY X-RAY ABSORPTIOMETRY / DXA REASON FOR EXAM: Female, 80 years old. Age of sabas 54. Pat is 174.4# and 60 and quot; a loss of 1 and quot; per pat. Quit smoking in 1983. Does not exercise. TECHNIQUE: Bone Mineral Density (BMD) measurements of lumbar spine and bilateral hips were obtained. COMPARISON: None. FINDINGS: Lumbar Spine (L1-L4): g/cm2 (1.146) / T-score (-0.5) / Z-score (1.4) Findings are suggestive of normal bone density with a low fracture risk. Left Femur Total: g/cm2 (0.824) / T-score (-1.5) / Z-score (0.6) Left Femoral Neck: g/cm2 (0.758) / T-score (-2.0) / Z-score (0.2) Right Femur Total: g/cm2 (0.851) / T-score (-1.2) / Z-score (0.8) Right Femoral Neck: g/cm2 (0.787) / T-score (-1.8) / Z-score (0.4) BD/Dexa Bone Density Study IMPRESSION: The patient is considered osteopenic as outlined below according to World Ernesto Organization (WHO) criteria with a moderate fracture risk. Reference Information: The T-score is the number of standard deviations above or below the standard which is normal for young adults at their peak bone mineral density. The World Health Organization (WHO) interprets the T-scores as follows: Above -1 Normal bone density Between -1 and -2.5 Osteopenia Equal to / or below -2.5 Osteoporosis As a practical clinical guideline, osteopenia may be graded as follows: Mild -1 through -1.5 Moderate -1.6 through -2.0 Severe -2.1 through -2.4 The Z-score is the number of standard deviations above or below age-matched controls. A Z-score of less than -1.5 would be considered abnormal. References: 1. NIH Osteoporosis and Related Bone Diseases www osteo.org 2. International Society for Clinical Densitometry www iscd.org 3. National Osteoporosis Foundation www nof.org Electronically Signed: Abrahan Munson, at 12:29 EST , Service support ,
== END ==
PROVIDERS: PCP Family Medicine; Referring Provider Internal Medicine Medical Oncology; Visit Provider Internal Medicine Medical Oncology
DX: Z78.0 Asymptomatic menopausal state (principal); C50.919 Malignant neoplasm of unspecified site of unspecified female breast
CPT/HCPCS: 36415; 77080; 80053; 83615; 85025

== ENCOUNTER → 2021-03-31 14:18 | Outpatient (CLI) | payer MEDICARE, SELFPAY ==
[2020-06-20 13:21] VITALS: BMI 34.5
[2020-08-22 14:37] VITALS: BMI 34.8
--- NOTE | 2021-03-31 14:21 | BI_ITS ---
MAMMOGRAPHY - BILATERAL DIAGNOSTIC REASON FOR EXAM: Female, 81 years old. History of right lumpectomy and radiation treatment. PERTINENT HISTORY: Personal history of breast cancer. Sisters with breast cancer. TECHNIQUE: Digital bilateral breast key (3D mammographic acquisition) in the CC and MLO projections. 2-D mediolateral oblique (MLO) and craniocaudad (CC) views of both breasts were obtained. CAD: Full Field Digital Mammography with Computer Added Detection was performed. COMPARISON: Comparison is made with prior study dated 05/28/2020 and 03/28/2012. FINDINGS: Breast Composition: There are scattered areas of fibroglandular density. There are no dominant masses or suspicious calcifications. The patient is status post lumpectomy of the nodular density in the deep inferior medial aspect of the right breast. Postoperative changes as well as overlying skin thickening are seen. Surgical clips are also seen in the right axillary region. No other significant abnormalities are identified. BI/DIAG MAMM W/CAD, BILAT IMPRESSION: Status post lumpectomy with resection of the nodular density in the deep inferior medial aspect of the right breast. Postsurgical changes with scarring and skin thickening are seen. Surgical clips are seen in the right axillary region. One year follow-up recommended. (A) ASSESSMENT CATEGORY: BIRADS Category 2: Benign. A letter regarding these results will be sent to the patient by the facility within 30 days. Approximately 10% of breast cancers are not detected by mammography. A normal mammogram should not delay biopsy of a clinically suspicious abnormality. Electronically Signed: Abrahan Munson MD at 15:21 EDT , Service support ,
== END ==
PROVIDERS: PCP Family Medicine; Referring Provider Student in an Organized Health Care Education/Training Program; Visit Provider Student in an Organized Health Care Education/Training Program
DX: C50.311 Malignant neoplasm of lower-inner quadrant of right female breast (principal); Z17.0 Estrogen receptor positive status [ER+]
CPT/HCPCS: 77066

== ENCOUNTER → 2021-12-08 | Outpatient (CLI) | payer MEDICARE, SELFPAY ==
[2020-06-20 13:21] VITALS: BMI 34.5
== END | disposition home or self-care (01) ==
PROVIDERS: PCP Family Medicine; Visit Provider Family Medicine
DX: U07.1 COVID-19 (principal)
CPT/HCPCS: 87635; U0003; U0005

== ENCOUNTER → 2022-04-24 | Outpatient (CLI) | payer MEDICARE, SELFPAY ==
[2020-06-20 13:21] VITALS: BMI 34.5
--- NOTE | 2022-04-24 08:38 | BI_ITS ---
MAMMOGRAPHY - BILATERAL SCREENING 3-D TOMOSYNTHESIS REASON FOR EXAM: Female, 82 years old. Routine screening PERTINENT HISTORY: Sisters with breast cancer.. TECHNIQUE: 2-D mammograms and 3-D Tomosynthesis of the breast (s) were performed. CAD was performed. COMPARISON: 03/28/2020 FINDINGS: The breast composition is almost entirely fat. Scattered benign calcifications are seen. No dense spiculated masses or suspicious microcalcifications are identified. No architectural distortion is identified. There is no skin thickening or retraction. There has been no significant change since the prior study. BI/SCRN MAMM (CAD)W/JERICA BILAT IMPRESSION: No mammographic signs of malignancy. Routine yearly mammograms recommended. ASSESSMENT CATEGORY: BIRADS Category 1: Negative. A letter regarding these results will be sent to the patient by the facility within 30 days. FOLLOW UP RECOMMENDATION: Yearly follow up mammogram recommended. (A) Approximately 10% of breast cancers are not detected by mammography. A normal mammogram should not delay biopsy of a clinically suspicious abnormality. Electronically Signed: John Soni MD at 9:56 EDT ,
== END | disposition home or self-care (01) ==
LOC: OPBI 08:37
PROVIDERS: PCP Family Medicine; Visit Provider Family Medicine
DX: Z12.31 Encounter for screening mammogram for malignant neoplasm of breast (principal); Z80.3 Family history of malignant neoplasm of breast
CPT/HCPCS: 77063; 77067

== ENCOUNTER → 2023-02-26 | Outpatient (CLI) | payer MEDICARE, SELFPAY ==
[2020-06-20 13:21] VITALS: BMI 34.5
[2023-02-26 15:22] LABS: Absolute Neutrophil Count 4.7 X10^3/uL (2.0-7.7); Basophil# 0.03 X10^3/uL; Basophil% 0.4 % (0-1); Eosinophil# 0.25 X10^3/uL; Eosinophils% 3.3 % (0-5); Hematocrit 41.2 % (37-47); Hemoglobin 13.3 g/dL (12.0-15.0); Lymphocyte % 25.1 % (19-41); Mean Corp Hgb Conc 32.3 g/dL (32-36); Mean Corpuscular Hgb 30.3 pg (27.0-32.0); Mean Corpuscular Volume 93.8 fL (81-99); Mean Platelet Vol. 10.9 fl (6.2-12.0); Monocyte# 0.69 X10^3/uL; Monocyte% 9.1 % (0-10); NRBC Flagged by Analyzer 0 % (0-5); Neutrophil # 4.67 X10^3/uL (2.7-7.7); Neutrophil % 61.8 % (47-70); Platelet Count 239 K/mm3 (150-450); RBC Distribution Width CV 12.3 % (11.6-14.6); RBC Distribution Width SD 43.1 fl (35.1-43.9); Red Blood Count 4.39 M/mm3 (4.2-5.4); White Blood Count 7.6 K/mm3 (4.4-11.0)
[2023-02-26 15:42] LABS: ALB/GLOB Ratio 1.1 RATIO (0.9-2.4); AST(SGOT) 23 U/L (15-37); Alanine Aminotransfer ALT/SGPT 30 U/L (13-56); Albumin, Serum 4.1 g/dL (3.2-5.0); Alkaline Phosphatase 61 U/L (45-117); Anion Gap 5 (5-15); BUN 16 mg/dL (7-18); BUN/Creat Ratio 17.4 RATIO (10-20); Calcium,Total 9.9 mg/dL (8.5-10.1); Chloride 107 mmol/L (98-107); Creatinine, Serum 0.92 mg/dL (0.55-1.02); EST Glomerular Filtration Rate 62 mL/min (>60); Est Glom Filt Rate - Afr Amer 75 mL/min (>60); Globulin 3.8 g/dL (2.2-4.2); Glucose 88 mg/dL (74-106); Potassium 4.4 mmol/L (3.5-5.1); Protein, Total 7.9 g/dL (6.4-8.2); Sodium Level 136 mmol/L (136-145)
== END | disposition home or self-care (01) ==
LOC: BFHLAB 11:18
PROVIDERS: PCP Family Medicine; Referring Provider Family Medicine; Visit Provider Family Medicine
DX: C50.919 Malignant neoplasm of unspecified site of unspecified female breast (principal); K21.9 Gastro-esophageal reflux disease without esophagitis
CPT/HCPCS: 36415; 80053; 85025

== ENCOUNTER → 2023-04-27 | Outpatient (CLI) | payer MEDICARE, SELFPAY ==
[2020-06-20 13:21] VITALS: BMI 34.5
--- NOTE | 2023-04-27 10:03 | BI_ITS ---
MAMMOGRAPHY - BILATERAL SCREENING REASON FOR EXAM: Female, 83 years old. Routine annual screening examination. PERTINENT HISTORY: Personal history of breast cancer. Prior right lumpectomy with radiation. Remote right excisional breast biopsy. Sisters with breast cancer. Aunt with breast cancer. TECHNIQUE: Digital bilateral breast jerica (3D mammographic acquisition) in the CC and MLO projections. 2-D mediolateral oblique (MLO) and craniocaudad (CC) views of both breasts were obtained. CAD: Full Field Digital Mammography with Computer Added Detection was performed. COMPARISON: Comparison is made with prior examination dated April 24, 2022 and March 31, 2021. FINDINGS: Breast Composition: The breasts are almost entirely fatty. There are no dominant masses or suspicious calcifications. Postsurgical changes are seen in the retroareolar region of the right breast and compared with prior lumpectomy. Surgical clips are seen in the right axilla as well as in the deep central medial portion of the right breast. Stable appearance of the small bilateral axillary lymph nodes. No other significant abnormalities are identified. There has been no significant change since the prior study. BI/SCRN MAMM (CAD)W/JERICA BILAT IMPRESSION: Stable bilateral screening mammogram. Yearly follow-up mammogram recommended. (A) ASSESSMENT CATEGORY: BIRADS Category 2: Benign. A letter regarding these results will be sent to the patient by the facility within 30 days. Approximately 10% of breast cancers are not detected by mammography. A normal mammogram should not delay biopsy of a clinically suspicious abnormality. [id number] Electronically Signed: Abrahan Munson MD at 11:12 EDT ,
== END | disposition home or self-care (01) ==
LOC: OPBI 10:01
PROVIDERS: PCP Family Medicine; Referring Provider Family Medicine; Visit Provider Family Medicine
DX: Z12.31 Encounter for screening mammogram for malignant neoplasm of breast (principal); Z85.3 Personal history of malignant neoplasm of breast
CPT/HCPCS: 77063; 77067

== ENCOUNTER → 2023-07-06 | Outpatient (CLI) | payer MEDICARE, SELFPAY ==
[2020-06-20 13:21] VITALS: BMI 34.5
--- NOTE | 2023-07-06 15:25 | CT_ITS ---
EXAM: CT CHEST, ABDOMEN AND PELVIS WITH INTRAVENOUS CONTRAST CLINICAL INDICATION: Breast carcinoma. Back pain. Rule out malignancy. TECHNIQUE: Helically acquired images were obtained of the chest, abdomen and pelvis with intravenous contrast. This CT exam was performed using one or more of the following dose reduction techniques: automated exposure control, adjustment of the mA and/or kV according to patient size, and/or use of iterative reconstruction technique. CONTRAST: IV 100mL Isovue-300 RADIATION DOSE: CTDIvol = 17.15 mGy, DLP = 1527.82 mGy-cm COMPARISON: No relevant prior studies available. FINDINGS: CHEST: LUNGS AND PLEURAL SPACES: Peripheral reticulation with traction bronchiectasis in the right lower lobe more than left lower lobe. Few scattered centrilobular cysts in both lungs. Prominent thin-walled cyst in the right lung base. Mild pulmonary hyperinflation and flattening of the hemidiaphragms. No mass. No pleural effusion or thickening. No pneumothorax. HEART: Unremarkable. Heart size is normal. Normal cardiac size. No visible coronary artery calcifications. Normal pericardium. MEDIASTINUM: Small hiatal hernia. No mediastinal or hilar adenopathy. Esophagus is unremarkable. THYROID: Unremarkable. No thyroid lesions. ABDOMEN: LIVER: Unremarkable. Homogeneous. No focal mass. GALLBLADDER AND BILE DUCTS: Contracted gallbladder. No calcified gallstones. No gallbladder distention or wall edema. No intra- or extrahepatic biliary ductal dilation. PANCREAS: Unremarkable. No focal cystic or solid mass. SPLEEN: Unremarkable. Normal size without focal cystic or solid mass. ADRENALS: Unremarkable. No nodules. KIDNEYS AND URETERS: Unremarkable. Normal renal size and position. No hydronephrosis. STOMACH AND BOWEL: Unremarkable. No stomach or bowel distention. No focal inflammatory change. PELVIS: APPENDIX: No evidence of acute appendicitis. BLADDER: Unremarkable. No suspicious abnormality of the empty urinary bladder. REPRODUCTIVE: Unremarkable as visualized. No mass. CHEST, ABDOMEN and PELVIS: INTRAPERITONEAL SPACE: Unremarkable. No ascites or other fluid collection. No free air. BONES/JOINTS: Mild degenerative anterolisthesis of L4 on L5. No lytic or blastic metastatic disease. SOFT TISSUES: Abnormal thickening of the skin of the right breast. No discrete abdominal or pelvic wall hernia. 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 Calcified plaques in the abdominal aorta, more along the infrarenal abdominal aorta. Calcified plaque at the origin of the SMA without obvious significant stenosis. Calcified plaques in both common iliac arteries, external iliac arteries and internal iliac arteries. No thoracic aortic aneurysm. LYMPH NODES: Multiple prominent lymph nodes in both sides of the trachea, in the anterior carinal space, the left AP window and smaller lymph nodes in both edwige. CT/CT Chest, Abd, Pel w/Contrast IMPRESSION: 1. Prominent lymph nodes in both sides of the trachea, in the anterior carinal space, left AP window and smaller lymph nodes in both edwige. Whole body PET/CT fusion scan will be more helpful in determining roxie metastases. 2. 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 3. Abnormal thickening of the skin in the right breast. This may be related to the clinical history of breast carcinoma. 4. No CT evidence of metastatic disease or acute abnormality in the abdomen and pelvis. Electronically Signed: Zenon Cornejo MD at 10:07 EST ,
--- OUTSIDE RECORDS SUMMARY | 2023-07-06 17:42 | XMS RPT_ITS | CCD ---
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 Name Role Phone Unavailable Primary Care Provider ANDREA Leger Attending Unavailable Allergies Allergy Classification Reported Allergen(s) Allergy Type Date of Onset Reaction(s) Facility (2 sources) Acetaminophen / HYDROcodone; Translations: [HYDROCODONE-ACETA MINOPHEN] Drug Allergy 11-27-2015 GI Upset [facility] Work Phone: Medications Completed/Discontinued Medications Medication Drug Class(es) Dates Sig (Normalized) Sig (Original) omeprazole 40 mg delayed release oral capsule (1 source) Proton Pump Inhibitor Start: 04-30-2010 take 1 capsule by mouth once daily Omeprazole (PRILOSEC) 40 mg ORAL capsule Take one(1) capsule daily. 0 04/30/2010 Active Problems Problem Classification Problem Date Documented Date Episodic/Chronic Cancer of breast (1 source) History of malignant neoplasm of breast; Translations: [Personal history of malignant neoplasm of breast] Onset: 04-22-2021 04-22-2021 Episodic Cancer of other female genital organs (1 source) Low grade squamous intraepithelial lesion on vaginal Papanicolaou smear; Translations: [Low grade squamous intraepithelial lesion on cytologic smear of vagina (LGSIL)] Onset: 12-09-2015 03-22-2019 Episodic Other skin disorders (1 source) Skin lesion; Translations: [Disorder of the skin and subcutaneous tissue, unspecified] Onset: 04-30-2010 04-30-2010 Episodic Results Test Name Value Interpretation Reference Range Facil ity Encounters Encounter Date Encounter Type Care Provider Facility Start: 06-15-2022 Telephone encounter Andrea Quiles MD Work Phone: OB/Gynecology Plan of Treatment Date Care Activity Detail Author Start: 03-05-2022 Influenza vaccination INFLUENZA (#1) [facility] Start: 09-11-2021 COVID-19 VACCINE (4 - Booster for Pfizer series) COVID-19 VACCINE (4 - Booster for Pfizer series) [facility] Start: 07-05-2021 ADVANCE DIRECTIVE DISCUSSION ADVANCE DIRECTIVE DISCUSSION [facility] Start: 07-05-2021 DEPRESSION ASSESSMENT DEPRESSION ASS ESSMENT [facility] Start: 07-05-2014 PNEUMOCOCCAL: 65+ (2 - PCV) PNEUMOCOCCAL: 65+ (2 - PCV) [facility] Start: 08-30-2007 SHINGRIX VACCINE (2 of 3) MARQUEZ GRIX VACCINE (2 of 3) [facility] Start: 2004 BONE DENSITY BONE DENSITY [facility] Start: 1984 DIABETES SCREEN DIABETES SCREEN [facility] Start: 1958 Urine microalbumin profile DTAP,TDAP ,TD (1 - Tdap) [facility] Immunizations Immunization Date Immunization Notes Care Provider Fa cilisylvia 07-05-2013 pneumococcal polysaccharide vaccine, 23 valent Andrea Quiles MD Work Phone: [facility] 07-05-2007 zoster vaccine, live Andrea Quiles MD Work Phone: [facility] Payers Date Payer Category Payer Medicare MMO MEDICARE MMO MEDADVANTAGE HMO [id number] 2015-Present [phone] [address] [place] [address] O [id number] 2015 Unknown [id number] Social History Date Type Detail Facility Start: 06-09-2022 Tobacco smoking stat us NHIS Ex-smoker [facility] End: 11-07-1983 History of tobacco use Current smoker [facility] End: 11-07-1983 History of tobacco use Cigarette Smoker [facility] Start: 06-09-2022 Tobacco use and exposure Smoke less tobacco non-user [facility] Start: 06-09-2022 Alcohol intake 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 Patient notified and voiced understanding of below. Joyce Guillen RN Images from the original note were not included. Left message to call office Andrea Quiles MD 06/15/2022 12:13 PM EST Back to Top Please notify that her pap is low grade again. I would just recommend following this for now. Repeat in 1 year. Andrea Quiles MD documented in this encounter [facility] Progress note 06-09-2022 Note Date & Type Note Facility 06-09-2022 Note HNO ID: [id number] Author: Andrea Quiles MD Service: ? Author Type: Physician Type: Progress Notes Filed: 06/09/2022 9:08 AM Note Text: Yevgeniy is a 82 year old who presents for an annual gynecologic exam without complaints. 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 LMP: Hysterectomy Age at Menarche: Age at First : Age at Menopause: Foamite Mixer History Comments: Sexual Activity: Not Currently; No partner data on record Contraception: No contraception data on record PAST MEDICAL HISTORY Diagnosis Date Breast cancer (HCC) 03/2020 right breast Depression GERD (gastroesophageal reflux disease) HPV (human papillomavirus) HPV in female + HPV, 01/2016 sent HPV subtyping test 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 still has ovaries FAMILY HISTORY Problem Relation Age of Onset Diabetes Mother Ischemic Heart Disease Mother Cancer Father kidney Breast Cancer Sister Breast Cancer Sister Breast Cancer Sister Cervical Cancer Sister Breast Cancer Sister Uterine too. Diabetes Sister Blood Disease Brother Breast Cancer Maternal Aunt Cancer Maternal Aunt Female related Cervical Cancer Other niece Cervical Cancer Other niece SOCIAL HISTORY Social History Tobacco Use Smoking status: Former Types: Cigarettes Quit date: 11/07/1983 Years since quittin.6 Smokeless tobacco: Never Vaping Use Vaping Use: Never used Substance Use Topics Alcohol use: No Drug use: No REVIEW OF SYSTEMS Abdomen: No abdominal pain, nausea, vomiting, diarrhea, or constipation. No bloating, early satiety, indigestion, or increased flatulence. Bladder: No dysuria, gross hematuria, urinary frequency, urinary urgency, or incontinence Breast: No breast lumps, nipple d/c, overlying skin changes, redness or skin retraction Allergies and current medication updated:Yes EXAM: BP 128/70 Ht 5' .75 (1.54m) Wt 171 lb (77.6kg) BMI 32.58 kg/(m2). GENERAL: pleasant, female in no apparent distress HEENT: Normocephalic, atraumatic, mucus membranes moist, and no lesions NECK: Supple, full range of motion, no adenopathy, and thyroid normal DERMATOLOGY: Normal, without lesions, non-icteric, and non-hirsute BREAST: soft, non-tender, symmetric, no dominant mass, normal nipple-areolar complex, no lymphadenopathy, and no nipple discharge CHEST: Normal inspiratory effort ABDOMEN: soft, non-tender, and no masses PELVIC: external genitalia normal, normal Bartholin's glands, urethra, Rawlins's glands, no vulvar lesions, mild vaginal prolpase, physiologic discharge present, normal appearing perineal body and perianal region, cervix surgically absent, abnormal discharge flattened pale epithelium BIMANUAL: no adnexal masses, non-tender, and uterus surgically absent RECTOVAGINAL: deferred. NEURO: alert and oriented x3,exam grossly non-focal EXTREMITIES: normal ASSESSMENT/PLAN: 1) Health maintenance: Pap done with HPV. Mammogram up to date 2) Follow up one year or sooner as needed Andrea Quiles MD [facility] Summary Purpose Family History No Family History Records Found Advance Directives No Advanced Directives Records Found Additional Source Comments Source Comments (unrecognize d section and content) In the event this informatio n is protected by the Federal Confidentiality of Alcohol and Drug Abuse Patient Records regulations: The Federal rules restrict any use of the information to criminally investigate or prosecute any alcohol or drug abuse patient.[facility] Reason for Visit (unrecogniz ed section and content) INFORMATION SOURCE (unrecogn ized section and content) FOR RECORDS PERTAINING TO PATIENTS WHO ARE OR HAVE BEEN ENROLLED IN A CHEMICAL DEPENDENCY/SUBSTANCEABUSE PROGRAM, SOME INFORMATION MAY BE OMITTED. This clinical summary was aggregated from multiple sources. Caution should be exercised in using it in the provision of clinical care. This summary normalizes information from multiple sources, and as a consequence, information in this document may materially change the coding, format and clinical context of patient data. In addition, data may be omitted in some cases. CLINICAL DECISIONS SHOULD BE BASED ON THE PRIMARY CLINICAL RECORDS. [facility]. provides no warranty or guarantee of the accuracy or completeness of information in this document.
== END | disposition home or self-care (01) ==
PROVIDERS: PCP Family Medicine; Referring Provider Internal Medicine Medical Oncology; Visit Provider Internal Medicine Medical Oncology
DX: C50.911 Malignant neoplasm of unspecified site of right female breast (principal); M54.9 Dorsalgia, unspecified
CPT/HCPCS: 71260; 74177; Q9967; A4216

== ENCOUNTER → 2023-07-08 | Outpatient (CLI) | payer MEDICARE, SELFPAY ==
[2020-06-20 13:21] VITALS: BMI 34.5
--- NOTE | 2023-07-08 09:04 | NM_ITS ---
CLINICAL: 83-year-old female with history of primary breast carcinoma. WHOLE BODY 99m Tc MDP RADIONUCLIDE BONE SCINTIGRAPHY COMPARISON: None available FINDINGS: Following the intravenous administration of 26.0 mCi of 99m Tc MDP, whole body bone images reveal: 1. Increased radiopharmaceutical concentration is defined in the acromioclavicular, sternoclavicular and glenohumeral compartments of both shoulders, the patellofemoral compartment of the left knee, the right forefoot, the left wrist, the lower cervical spine posteriorly on the right, the first thoracic vertebra posteriorly on the left, the sacrum posteriorly on the left and right. 2. The remaining skeletal structures are scintigraphically unremarkable with normal-appearing renal images and urinary bladder activity identified. Presumed injection site artifact is noted in the region of the left wrist. Clinical examination may be of benefit to ensure the absence of osseous pathology. NM/Bone Scan Whole Body IMPRESSION: 1. The increase in radiotracer concentration defined in the bilateral shoulders, left knee, the right forefoot, left wrist, the cervical and thoracic spine, the sacrum is commensurate with degenerative arthrosis. 2. There is no definitive scintigraphic evidence of diffuse axial skeletal metastatic disease. Electronically Signed: Deepak Miller DO at 8:39 EST ,
--- OUTSIDE RECORDS SUMMARY | 2023-07-08 09:28 | XMS RPT_ITS | CCD ---
Author Name Unknown Address [address] [place] [address] Organization [facility] Care Team Providers Care Freight Coordinator Name Role Phone Unavailable Primary Care Provider ANDREA Leger Attending Unavailable Allergies Allergy Classification Reported Allergen(s) Allergy Type Date of Onset Reaction(s) Facility (2 sources) Acetaminophen / HYDROcodone; Translations: [HYDROCODONE-ACETA MINOPHEN] Drug Allergy 11-27-2015 GI Upset [facility] Work Phone: Medications Completed/Discontinued Medications Medication Drug [...] Author Start: 03-05-2022 Influenza vaccination INFLUENZA (#1) [facility] Start: 09-11-2021 COVID-19 VACCINE (4 - Booster for Pfizer series) COVID-19 VACCINE (4 - Booster for Pfizer series) [facility] Start: 07-05-2021 ADVANCE DIRECTIVE DISCUSSION ADVANCE DIRECTIVE DISCUSSION [facility] Start: 07-05-2021 DEPRESSION ASSESSMENT DEPRESSION ASS ESSMENT [facility] Start: 07-05-2014 PNEUMOCOCCAL: 65+ (2 - PCV) PNEUMOCOCCAL: 65+ (2 - PCV) [facility] Start: 08-30-2007 SHINGRIX VACCINE (2 of 3) MARQUEZ GRIX VACCINE (2 of 3) [facility] Start: 2004 BONE DENSITY BONE DENSITY [facility] Start: 1984 DIABETES SCREEN DIABETES SCREEN [facility] Start: 1958 Urine microalbumin profile DTAP,TDAP ,TD (1 - Tdap) [facility] Immunizations Immunization Date Immunization Notes Care Provider Fa cilisylvia 07-05-2013 pneumococcal polysaccharide vaccine, 23 valent Andrea Quiles MD Work Phone: [facility] 07-05-2007 zoster vaccine, live Andrea Quiles MD Work Phone: [facility] Payers Date Payer Category Payer Medicare MMO MEDICARE MMO MEDADVANTAGE HMO [id number] 2015-Present [phone] [address] [place] [address] O [id number] 2015 Unknown [id number] Social History Date Type Detail Facility Start: 06-09-2022 Tobacco smoking stat us NHIS Ex-smoker [facility] End: 11-07-1983 History of tobacco use Current smoker [facility] End: 11-07-1983 History of tobacco use Cigarette Smoker [facility] Start: 06-09-2022 Tobacco use and exposure Smoke less tobacco non-user [facility] Start: 06-09-2022 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 Age at Menarche: Age at First : Age at Menopause: Second Officer History Comments: Sexual Activity: Not Currently; No [...] WHEN PFRMD Colonoscopy OFFICE LEEP 1999 In [facility] PAST SURGICAL HISTORY OF left lazy eye [...] external genitalia normal, normal Bartholin's glands, urethra, [place]'s glands, no vulvar lesions, mild vaginal prolpase, [...] or sooner as needed Andrea Quiles MD [facility] Summary Purpose Family History No Family History [...] or prosecute any alcohol or drug abuse patient.[facility] Reason for Visit (unrecogniz ed section and [...] BE BASED ON THE PRIMARY CLINICAL RECORDS. [facility]. provides no warranty or guarantee of the accuracy or completeness of information in this document.
== END | disposition home or self-care (01) ==
LOC: NM 09:03
PROVIDERS: PCP Family Medicine; Referring Provider Internal Medicine Medical Oncology; Visit Provider Internal Medicine Medical Oncology
DX: C50.911 Malignant neoplasm of unspecified site of right female breast (principal); M54.9 Dorsalgia, unspecified
CPT/HCPCS: 78306; A9503

== ENCOUNTER → 2023-08-02 | Outpatient (CLI) | payer MEDICARE, SELFPAY ==
[2020-06-20 13:21] VITALS: BMI 34.5
--- NOTE | 2023-08-02 09:08 | RAD_ITS ---
STUDY: X-RAY CHEST REASON FOR EXAM: Female, 83 years old. Crackles TECHNIQUE: PA and lateral views of the chest. COMPARISON: May 24, 2020 chest x-ray, June 08, 2017 chest x-ray FINDINGS: There is a pattern of interstitial thickening and areas of lucency suggesting underlying interstitial fibrosis. Although overall similar to prior study June 08, 2017 there may be increasing peripheral groundglass opacity in the left greater than right lung since prior study.. There is no demonstrated pleural abnormality. There is postoperative change in the right axilla. Normal size heart. Normal mediastinum and edwige. Normal visualized pulmonary arteries. There is atherosclerotic calcification of the aortic arch with tortuosity. There are diffuse degenerative changes of the visualized thoracic spine. Normal visualized ribs, clavicles, and shoulders. There is no demonstrated abnormality of the visualized soft tissue structures of the upper abdomen. RAD/Chest PA and Lateral IMPRESSION: Chronic lung disease possible interval worsening since the prior studies versus a peripheral possible atypical infiltrate potentially viral pneumonia. Electronically Signed: Florina Santiago MD at 21:50 EST Reading Location ID and State: [facility] / [place] Tel , Service support ,
--- OUTSIDE RECORDS SUMMARY | 2023-08-02 09:35 | XMS RPT_ITS | CCD ---
Author Name Unknown Address [address] [place] [address] Organization [facility] Care Team Providers Care Document Clerk Name Role Phone Unavailable Primary Care Provider ANDREA Leger Referring Unavailable ANDREA BRUNNER Attending Unavailable Allergies Allergy Classification Reported Allergen(s) Allergy Type Date of Onset Reaction(s) Facility (2 sources) Acetaminophen / HYDROcodone; Translations: [HYDROCODONE-ACETA MINOPHEN] Drug Allergy 11-27-2015 GI Upset [facility] Work Phone: Medications Completed/Discontinued Medications Medication Drug Class(es) Dates Sig (Normalized) Sig (Original) omeprazole 40 mg delayed release oral capsule (1 source) Proton Pump Inhibitor Start: 04-30-2010 take 1 capsule by mouth once daily Omeprazole (PRILOSEC) 40 mg ORAL capsule Take one(1) capsule daily. 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] Onset: 07-12-2023 Episodic Sexually transmitted infections (not HIV or hepatitis) (1 source) Vaginal high risk human papillomavirus (HPV) DNA test positive; Translations: [Vaginal high risk human papillomavirus (HPV) DNA test positive] Onset: 07-12-2023 Episodic Past or Other Problems Problem Classification Problem Date Documented Date Episodic/Chronic Cancer of breast (2 sources) History of malignant neoplasm of breast; Translations: [Personal history of malignant neoplasm of breast] Onset: 04-22-2021 04-22-2021 Episodic Cancer of other female genital organs (2 sources) Low grade squamous intraepithelial lesion on vaginal Papanicolaou smear; Translations: [Low grade squamous intraepithelial lesion on cytologic smear of vagina (LGSIL)] Onset: 12-09-2015 03-22-2019 Episodic Other skin disorders (1 source) Skin lesion; Translations: [Disorder of the skin and subcutaneous tissue, unspecified] Onset: 04-30-2010 04-30-2010 Episodic Results Test Name Value Interpretation Reference Range Facil ity Encounters Encounter Date Encounter Type Care Provider Facility Start: 07-12-2023 End: 07-13-2023 ambulatory ANDREA BRUNNER Facility:[facility] Start: 06-15-2022 Telephone encounter Andrea Brunner MD Work Phone: OB/Gynecology Plan of Treatment Date Care Activity Detail Author Start: 03-05-2022 Influenza vaccination INFLUENZA (#1) [facility] Start: 09-11-2021 COVID-19 VACCINE (4 - Booster for Pfizer series) COVID-19 VACCINE (4 - Booster for Pfizer series) [facility] Start: 07-05-2021 ADVANCE DIRECTIVE DISCUSSION ADVANCE DIRECTIVE DISCUSSION [facility] Start: 07-05-2021 DEPRESSION ASSESSMENT DEPRESSION ASS ESSMENT [facility] Start: 07-05-2014 PNEUMOCOCCAL: 65+ (2 - PCV) PNEUMOCOCCAL: 65+ (2 - PCV) [facility] Start: 08-30-2007 SHINGRIX VACCINE (2 of 3) MARQUEZ GRIX VACCINE (2 of 3) [facility] Start: 2004 BONE DENSITY BONE DENSITY [facility] Start: 1984 DIABETES SCREEN DIABETES SCREEN [facility] Start: 1958 Urine microalbumin profile DTAP,TDAP ,TD (1 - Tdap) [facility] Immunizations Immunization Date Immunization Notes Care Provider Fa cility 07-05-2013 pneumococcal polysaccharide vaccine, 23 valent Andrea Brunner MD Work Phone: [facility] 07-05-2007 zoster vaccine, live Andrea Brunner MD Work Phone: [facility] Payers Date Payer Category Payer Medicare MMO MEDICARE MMO [employer]ANT[employer] HMO [id number] 2015-Present [phone] [address] [place] [address] [facility] [id number] 2015 Unknown [id number] Social History Date Type Detail Facility Start: 06-09-2022 Tobacco smoking stat us NHIS Ex-smoker [facility] End: 11-07-1983 History of tobacco use Current smoker [facility] End: 11-07-1983 History of tobacco use Cigarette Smoker [facility] Start: 06-09-2022 Tobacco use and exposure Smoke less tobacco non-user [facility] Start: 06-09-2022 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 Denies vaginal bleeding. Not currently sexually active. Postmenopausal: yes HRT use: No. 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 GENERAL: pleasant, female in no apparent distress BREAST: soft, non-tender, symmetric, no dominant mass, normal nipple-areolar complex, no lymphadenopathy, and no nipple discharge CHEST: Normal inspiratory effort ABDOMEN: soft, non-tender, and no masses PELVIC: external genitalia normal, normal Bartholin's glands, urethra, [place]'s glands, no vulvar lesions, good vaginal support, normal appearing perineal body and perianal region, cervix surgically absent, atrophic flattened ruggae, cuff intact. 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 Mammogram ordered f/u yearly for VAIN. d /w her would not recommend treatment unless VAIN3. Call or report vaginal bleedinbg 2) Follow up one year or sooner as needed Andrea Brunner MD [facility] Note 06-15-2022 Telephone Encounter - Joyce Guillen RN - 06/15/2022 2:25 PM ESTTelephone Encounter - Elizabeth Alvaradonathaniel TAYLOR - 06/15/2022 12:35 PM EST Note Date & Type Note Facility 06-15-2022 Miscellaneous Notes Formattin g of this note might be different from the original. Patient notified and voiced understanding of below. Joyce Guillen RN Images from the original note were not included. Left message to call office Andrea Brunner MD 06/15/2022 12:13 PM EST Back to Top Please notify that her pap is low grade again. I would just recommend following this for now. Repeat in 1 year. Andrea Brunner MD documented in this encounter [facility] Summary Purpose Family History No Family History [...] or prosecute any alcohol or drug abuse patient.[facility] Reason for Visit (unrecogniz ed section and [...] BE BASED ON THE PRIMARY CLINICAL RECORDS. [facility] [facility]. provides no warranty or guarantee of the accuracy or completeness of information in this document.
--- NOTE | 2023-08-02 14:10 | LES_PTH ---
PATHOLOGY RESULTS PATIENT: JERO MAIER LOC: RAD U#:[id number] AGE/SX: 83/F ROOM: RE08/02/[address]: Dr. Joel Holloway MD : 1940 BED: DIS: 08/02/2023 SPEC #: [id number] RECD: 08/02/23 14:46 STATUS: VIKAS WADE #: [id number] JAVAD: 08/02/23 14:[address]: Joel Holloway DEPT: SURGICAL PATHOLOGY RECD BY: Concepcion Moffett ENTERED: 08/03/23 11:40 SP TYPE: Lesion OTHR DR: Dr. Maria Isabel Calix MD Tissues: Skin of breast, NOS Procedures: Surgery Specimen Level IV HEADER OPERATION: Punch biopsy right breast PRE-OP DIAGNOSIS: Abnormal PET scan TISSUE SUBMITTED: Right breast tissue MICROSCOPIC DIAGNOSIS Right breast, punch biopsy: Minimal dermal chronic inflammation. No evidence of malignancy. AM:kash 08/04/2023 COMMENT Case has been reviewed in consultation with Dr. Jones who concurs with the above diagnosis. IDC:SJ MICROSCOPIC DESCRIPTION Slides are reviewed. GROSS DESCRIPTION Received in fixative is one container labeled with the patient's name and designated right breast punch. The specimen consists of a punch biopsy of smith-white skin measuring 0.3 cm in diameter and 0.4 cm in length. The entire specimen is submitted in one cassette. / JARETT:kash 08/03/2023 TC:5 CPT: 28950
== END | disposition home or self-care (01) ==
PROVIDERS: PCP Family Medicine; Referring Provider Surgery; Visit Provider Surgery
DX: N61.0 Mastitis without abscess (principal)
CPT/HCPCS: 71046; 88305

== ENCOUNTER 2023-08-25 13:44 | Day surgery (SDC) | payer MEDICARE, SELFPAY ==
[2020-06-20 13:21] VITALS: BMI 34.5
[2023-08-25 14:16] VITALS: BP 154/78; PULSE 100; RESP 16; TEMP 36.1; O2SAT 96; BMI 32.8
[2023-08-25] MEDS: Lactated Ringers 1,000 ML 15 ML IV (14:25)
--- NOTE | 2023-08-25 15:00 | EGD_PTH ---
PATHOLOGY RESULTS PATIENT: JERO MAIER LOC: EN U#:[id number] AGE/SX: 83/F ROOM: RE08/25/[address]: Dr. Joel Holloway MD : 1940 BED: DIS: 08/25/2023 SPEC #: [id number] RECD: 08/26/23 07:07 STATUS: VIKAS WADE #: [id number] JAVAD: 08/25/23 15:[address]: Joel Holloway DEPT: SURGICAL PATHOLOGY RECD BY: Laura Orr ENTERED: 08/26/23 07:07 SP TYPE: EGD BIOPSY OT DR: MD Dr. Jamar Wells MD Tissues: Gastric mucous membrane Esophageal mucous membrane Procedures: Special Stain Group II Surgery Specimen Level IV Alcian Blue/PAS (control) HEADER OPERATION: EGD with biopsy PRE-OP DIAGNOSIS: Abnormal finding on imaging, right breast cancer, cellulitis TISSUE SUBMITTED: A - Antrum for H. pylori and path, B - Distal esophagus MICROSCOPIC DIAGNOSIS A. Antrum, biopsy: Moderate chronic active gastritis. See comment. B. Distal esophagus, biopsy: Fragments of gastroesophageal mucosa with chronic inflammation. Intestinal metaplasia (goblet cell metaplasia) not identified. See comment. SJ:rg 08/27/2023 COMMENT A. The results of immunohistochemistry for Helicobacter pylori will be reported separately ([id number]). B. Alcian blue/PAS stain with matched control is used in the evaluation of the specimen. MICROSCOPIC DESCRIPTION Slides are reviewed. GROSS DESCRIPTION A - Received in fixative is one container labeled with the patient's name and designated antrum biopsy. The specimen consists of one irregular fragment of light smith soft tissue that measures 0.3 x 0.3 x 0.1 cm. The specimen is totally submitted in one cassette. B - Received in fixative is one container labeled with the patient's name and designated distal esophagus. The specimen consists of multiple irregular fragments of light smith soft tissue that in aggregate measure 1.0 x 0.3 x 0.1 cm. The specimen is totally submitted in one cassette. / JARETT:kash 08/26/2023 TC:3 CPT: 89460 x2, 19085
--- NOTE | 2023-08-25 15:00 | IMM_PTH ---
PATHOLOGY RESULTS PATIENT: JERO MAIER LOC: EN U#:[id number] AGE/SX: 83/F ROOM: RE08/25/[address]: Dr. Joel Holloway MD : 1940 BED: DIS: 08/25/2023 SPEC #: [id number] RECD: 08/27/23 07:47 STATUS: VIKAS REQ #: [id number] JAVAD: 08/25/23 15:[address]: Joel Holloway DEPT: IMMUNOHISTOCHEMISTRY RECD BY: Blaire Mendieta ENTERED: 08/27/23 07:48 SP TYPE: IMMUNO OTHR DR: Dr. Maria Isabel Calix MD Tissues: Stomach, NOS Procedures: H Pylori (initial) PHYSICIAN & INSTITUTION [place] [id number] SPECIMEN INFORMATION: Tissue Source: A - Antrum Clinical Info: Abnormal finding on imaging Specimen Number: [id number] CPT code: 13915 METHODOLOGY: Deparaffinized sections of prefer/formalin-fixed tissue or PAP/DQ stained slides are incubated with monoclonal/polyclonal antibodies/oligonucleotide probes. Localization is made via biotin free immunoperoxidase method. Appropriate controls are performed and reacted as expected. Results on target cell population are indicated in the following table: RESULTS: ANTIBODY / CLONE RESULT Block A H Pylori (polyclonal) positive These tests were developed and their performance characteristics determined by [facility]. They may not have been cleared or approved by the U.S. Food and Drug Administration. The FDA has determined that such clearance or approval is not necessary. The above immunohistochemical/dualISH markers are ordered and reviewed by the Pathologist. INTERPRETATION: A. Antrum, biopsy: Positive for rare Helicobacter pylori organisms. SJ:kash 08/27/2023 Case has been reviewed in consultation with Dr. Pollard who concurs with the above diagnosis. IDC:AM
--- NOTE | 2023-08-25 15:25 | PCM.HP.BLA ---
History and Physical Date of Admission: 08/25/23 Visit Reasons: ABNORMAL PET SCAN Chief Complaint: abn PET Shaker Flat[place] Required: No Is patient in pain?: No Allergies No Known Allergies Allergy (Verified 08/02/23 08:12) Medications omeprazole 10 mg capsule,delayed release 20 mg PO QODAY reflux 05/09/20 [History Confirmed 08/02/23] paroxetine HCl 10 mg tablet 10 tab PO DAILY anxiety 05/09/20 [History Confirmed 08/02/23] cholecalciferol (vitamin D3) 25 mcg (1,000 unit) tablet 1,000 unit PO DAILY 06/17/20 [History Confirmed 08/02/23] PFS Medical History (Updated 08/02/23 @ 08:26 by Robina Davison) Abnormal mammogram of right breast Anxiety Basal cell carcinoma Breast cancer Depression GERD (gastroesophageal reflux disease) Lung crackles Surgical History History of cardiac catheterization History of partial hysterectomy Hx of breast biopsy S/P lumpectomy, right breast Family History Father Cancer kidneyMother Diabetes Heart diseaseSister Breast cancerSister Breast cancerSister Breast cancerSister Breast cancer Social History Smoking Status: Former smoker Tobacco: How many years used: 20 alcohol intake: never substance use type: does not use what type of physical activity do you participate in: walking HPI HPI HPI: 83-year-old female is being referred by Dr. Jamar Smith and her primary care physician's Dr. Maria Isabel Calix and a written compromise surgical consult recommendations will be returned to each. Very pleasant 83-year-old female. I assisted her on May 28, 2020 with a stereotactic lower inner right breast wire localization with a right axillary blue dye nuclear tracer sentinel lymph node biopsy. 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 Overall grade 2. DCIS not identified. Surgical margins 0.7 cm from the closest inferior margin. 5 sentinel lymph nodes negative. Estrogen receptor positive at less than 95%. Progesterone receptor positive less than 95%. HER-2/martin by IHC equivocal at 1-2+. HER-2/martin by COURTNEY negative. Pathologic stage pT1b pN0 MX By report she took tamoxifen for 2 weeks and then ceased. Recently she has had swelling and redness around the right nipple and surrounding area. CT scan of July 06, 2023 suggest mediastinal lymph nodes. Bone scan was negative. Tumor markers CA 15.3 and CA 27.29 were elevated. On July 20, 2023 she had a PET/CT. There is some increased uptake in the distal esophagus. Correlation is recommended. Cellulitis of the right breast was resolved. No other focal evidence of recurrent disease. Recommendations for evaluation of the lower esophageal findings. I have received a phone call from Dr. Jamar Smith. He is concerned about patient having some increased activity the skin of the right breast as well as the distal esophagus. The patient also apparently has some activity in the peritoneal area for which Dr. Renate Quiles will be investigating. ROS General General: Yes breast cancer; No weight change, appetite, fatigue, colon cancer or weakness HEENT HEENT: Yes eye injury and eye surgery; No difficulty swallowing, swollen glands or hoarseness Endo Endocrine: No thyroid disease, diabetes mellitus, thyroid cancer, Hair loss, heat intolerance or cold intolerance Skin Skin: Yes rash and changing moles Breast Breast: No left breast lump, right breast lump, nipple discharge, breast pain, abnormal mammogram, abnormal US or breast enlargement Musc Musculoskeletal: No back problems, arthritis, rheumatoid arthritis, gout or joint pain Cardio Cardiovascular: No murmur, pacemaker, heart disease, atrial fibrillation, high blood pressure, heart attack, heart stent, palpitations, shortness of breat with exertion or chest pain Psych Psychiatric: Yes anxiety; No depression or hearing voices Resp Respiratory: Yes shortness of breath, No sleep apnea, No cough, No COPD, No asthma, No emphysema and No wheezing Gastro Gastrointestinal: No abdominal pain, No nausea or vomiting, No diarrhea, No constipation, No blood in stool, Yes acid reflux, Yes hemorrhoids, No ulcers, No gallbladder problem and No black,tarry stools Oli Hematologic: No blood thinners, No blood disorders, No bleeding, No anemia and No blood clots Neuro Neurologic: No system reviewed and no additional complaints, except as documented, No as per HPI, No abnormal gait, No abnormal hearing, No abnormal movements, No abnormal speech, No behavioral changes, No burning sensations, No confusion, No convulsions, No disequilibrium, No dizziness, No localized weakness, No frequent falls, No headache(s), No lack of coordination, No loss of vision, No memory loss, No numbness, No other visual disturbances, No radicular pain, No restless legs, No sensory deficit, No syncope, No tingling, No tremor(s), No weakness and No other Exam Const General: cooperative, comfortable and no acute distress [facility] Head: normal to inspection Chest Other: Right breast: Just very slight textural thickening of the skin. Some slight erythematous changes medial inferior and upper outer. No focal mass. No nipple discharge. No focal tenderness. No axillary clavicular adenopathy. Right chest wall patient points to an area of tenderness I can detect no focal mass. Left breast without focal mass no nipple discharge axillary clavicular adenopathy Resp Other: Diffuse rales are noted 50% up the right. Clear on the left Cardio Rate: regular rate Rhythm: regular rhythm GI Inspection: normal to inspection Palpation: soft and no hepatosplenomegaly Musc Cervical Spine: normal cervical lordosis Skin General: no rashes or lesions noted Neuro General: patient alert, patient awake and patient oriented x3 Assessment and Plan Assessment and Plan (1) Abnormal finding on imaging: Status: Acute Comment: Lower esophageal hypermetabolic activity on PET/CT (2) Breast cancer, right: Status: Chronic Qualifiers: Breast location: lower outer quadrant of breast Estrogen receptor status: positive Patient sex: female Qualified Code(s): C50.511 - Malignant neoplasm of lower-outer quadrant of right female breast; Z17.0 - Estrogen receptor positive status [ER+] Comment: Right breast cancer, invasive ductal type, stage IA(pT1b pN0 cM0) ER/AK positive, Her2 negative. Tumor size 6mm, Grade 2, [place] nodes R axilla 5/5 negative. S/P Lumpectomy and sentinel node biopsy. Oncotype DX recurrence score 8 so there is minimal benefit for chemotherapy. Osteopenia. S/P Hysterectomy. S/P adjuvant Radiation therapy 07/29/2020 - 08/07/2020. Took Tamoxifen for [address] on 07/06/2023 showed mediastinal adenopathy, Pneumonitis, thickening of R breast skin. Bone scan on 07/08/2023 showed no metastases. CA15-3 and CA27.29 on 06/24/2023 are elevated. Comes for follow up. PET/CT on 07/20/2023 reviewed, shows lower esophageal activity. Pt agreed to proceed. (3) Cellulitis: Status: Resolved Qualifiers: Site of cellulitis: trunk Site of cellulitis of trunk: chest wall Qualified Code(s): L03.313 - Cellulitis of chest wall Comment: R breast cellulitis, resolved. Plan: On my clinical examination detecting rales in the right lung base. Etiology not clear. I want a PA and lateral chest x-ray After discussion with Dr. Jamar Smith request has been made to do a punch biopsy right breast which we will try to expedite. We will schedule the patient for an esophagogastroduodenoscopy with possible biopsy to evaluate the distal esophagus. The patient reports that she has an upcoming appoint with Dr. Renate Quiles regarding the peritoneal findings. Primary concern is regarding abnormal pet imaging as well as abnormal tumor markers. Etiology is not clear. On my physical exam I have a low level suspicion regarding dermal involvement of the right breast but the risk of a punch biopsy is low. If an abnormality is detected on chest x-ray then we will ask for assistance from primary care. We will expedite her upper scope exam. I appreciate the ongoing opportunity of assisting with the surgical care The patient on PET scan was felt to have increased uptake in the distal esophagus. For this reason as noted above plan to proceed with an esophagogastroduodenoscopy with possible biopsy with very careful inspection of the distal esophagus. The patient is aware of the technique, benefit, risk, alternatives. She has had an opportunity to ask and have questions answered. We will proceed as noted. Joel Holloway M.D., F.A.C.S. Copy: Dr. Maria Isabel Calix and Dr. Jamar Holloway M.D., F.A.C.S.
[2023-08-25 15:55] VITALS: BP 106/64; BP 154/78; PULSE 87; RESP 16; TEMP 36.2; O2SAT 92
--- NOTE | 2023-08-25 15:58 | OP.CCLET_ITS ---
08/25/2023 Jamar Smith MD [address] [place] [address] Re : Upper GI endoscopy procedure for Yevgeniy De La Cruz Dear Dr. Smith This procedure was performed on Friday, August 25, 2023. My impressions and recommendations are as follows: Impressions : - Reflux esophagitis with no bleeding. Biopsied. The findings of the distal esophagus quite mild. No evidence of active inflamed or ulcerative disease. Moderate sized 3 to 4 cm hiatal hernia. - Medium-sized hiatal hernia. - Normal stomach. Biopsied. - Normal examined duodenum. Recommendations : - Discharge patient to home. - Resume previous diet. - Continue present medications. - Telephone my office for pathology results in 1 week. No findings that would be suspicious for metastatic breast carcinoma. My findings are described in the full procedure note, which is enclosed. If I can be of further assistance, please feel free to contact me at Doctor phone number(s): Work: . Sincerely, Joel Holloway MD 08/25/2023 3:57:28 PM This report has been signed electronically.
--- NOTE | 2023-08-25 15:58 | OP.EGD_ITS ---
Patient Name: Yevgeniy De La Cruz Procedure Date: 08/25/2023 3:35 PM Date of : 1940 Age: 83 Procedure: Upper GI endoscopy Indications: Abnormal PET scan of the GI tract Providers: Joel Holloway MD Referring MD: Maria Isabel Calix Medicines: See the Anesthesia note for documentation of the administered medications Patient Profile: This is an 83 year old female. Complications: No immediate complications. Procedure: Pre-Anesthesia Assessment: - Prior to the procedure, a History and Physical was performed, and patient medications and allergies were reviewed. The patient's tolerance of previous anesthesia was also reviewed. The risks and benefits of the procedure and the sedation options and risks were discussed with the patient. All questions were answered, and informed consent was obtained. Prior Anticoagulants: The patient has taken no anticoagulant or antiplatelet agents. ASA Grade Assessment: II - A patient with mild systemic disease. After reviewing the risks and benefits, the patient was deemed in satisfactory condition to undergo the procedure. After obtaining informed consent, the endoscope was passed under direct vision. Throughout the procedure, the patient's blood pressure, pulse, and oxygen saturations were monitored continuously. The Endoscope was introduced through the mouth, and advanced to the second part of duodenum. The upper GI endoscopy was accomplished without difficulty. The patient tolerated the procedure well. Scope In: 3:44:14 PM Scope Out: 3:49:33 PM Total Procedure Duration Time 0 hours 5 minutes 19 seconds Findings: Esophagitis with no bleeding was found 35 cm from the incisors. Biopsies were taken with a cold forceps for histology. A medium-sized hiatal hernia was present. The entire examined stomach was normal. Biopsies were taken with a cold forceps for histology. The examined duodenum was normal. Impression: - Reflux esophagitis with no bleeding. Biopsied. The findings of the distal esophagus quite mild. No evidence of active inflamed or ulcerative disease. Moderate sized 3 to 4 cm hiatal hernia. - Medium-sized hiatal hernia. - Normal stomach. Biopsied. - Normal examined duodenum. Recommendation: - Discharge patient to home. - Resume previous diet. - Continue present medications. - Telephone my office for pathology results in 1 week. No findings that would be suspicious for metastatic breast carcinoma. Procedure Code(s): --- Professional --- 82741, Esophagogastroduodenoscopy, flexible, transoral; with biopsy, single or multiple Diagnosis Code(s): --- Professional --- K21.00, Gastro-esophageal reflux disease with esophagitis, without bleeding K44.9, Diaphragmatic hernia without obstruction or gangrene R93.3, Abnormal findings on diagnostic imaging of other parts of digestive tract CPT copyright 2021 [employer]. All rights reserved. The codes documented in this report are preliminary and upon braille coder review may be revised to meet current compliance requirements. Joel Holloway MD 08/25/2023 3:57:28 PM This report has been signed electronically. Number of Addenda: 0 Note Initiated On: 08/25/2023 3:35 PM
[2023-08-25 16:00] VITALS: BP 109/73; BP 154/78; PULSE 87; RESP 16; O2SAT 92
[2023-08-25 16:05] VITALS: BP 154/78; BP 161/75; PULSE 90; RESP 16; O2SAT 91
[2023-08-25 16:10] VITALS: BP 130/72; BP 154/78; PULSE 88; RESP 16; TEMP 36.6
[2023-08-25 16:30] VITALS: BP 154/78
== END 2023-08-25 16:34 | disposition home or self-care (01) ==
LOC: EN 13:52 → AC 13:59
PROVIDERS: PCP Family Medicine; Referring Provider Family Medicine; Visit Provider Surgery
PROC: 0DJ08ZZ Inspection of Upper Intestinal Tract, Via Natural or Artificial Opening Endoscopic (ICD-10-PCS; CPT 43235; principal; 2023-08-25 14:55)
DX: K29.50 Unspecified chronic gastritis without bleeding (principal); C50.511 Malignant neoplasm of lower-outer quadrant of right female breast; L03.313 Cellulitis of chest wall; K44.9 Diaphragmatic hernia without obstruction or gangrene; Z87.891 Personal history of nicotine dependence; Z17.0 Estrogen receptor positive status [ER+]; K21.00 Gastro-esophageal reflux disease with esophagitis, without bleeding; B96.81 Helicobacter pylori [H. pylori] as the cause of diseases classified elsewhere; Z79.899 Other long term (current) drug therapy
CPT/HCPCS: 43239; 88305; 88313; 88342

== ENCOUNTER → 2024-04-28 | Outpatient (CLI) | payer MEDICARE, SELFPAY ==
[2024-01-17 15:58] VITALS: BMI 34.5
--- NOTE | 2024-04-28 09:52 | BI_ITS ---
MAMMOGRAPHY - BILATERAL SCREENING REASON FOR EXAM: Female, 84 years old. Routine annual screening examination. PERTINENT HISTORY: Personal history of breast cancer. History of prior right lumpectomy with radiation treatment and excisional breast biopsy. Sisters with breast cancer. TECHNIQUE: Digital bilateral breast jerica (3D mammographic acquisition) in the CC and MLO projections. 2-D mediolateral oblique (MLO) and craniocaudad (CC) views of both breasts were obtained. CAD: Full Field Digital Mammography with Computer Added Detection was performed. COMPARISON: Comparison is made with prior study April 27, 2023 and April 24, 2022. FINDINGS: Breast Composition: There are scattered areas of fibroglandular density. There are no dominant masses or suspicious calcifications. The patient is status post lumpectomy in the retroareolar region of the right breast with resultant postoperative scarring and overlying skin thickening. Surgical clips are seen in the right axilla. 2 tissue markers are seen in the deep central medial portion of the right breast. Stable bilateral secretory calcifications. Stable fat-containing bilateral axillary lymph nodes. No other significant abnormalities are identified. There has been no significant change since the prior study. BI/SCRN MAMM (CAD)W/JERICA BILAT IMPRESSION: Stable bilateral screening mammogram. Yearly follow-up mammogram recommended. (A) ASSESSMENT CATEGORY: BIRADS Category 2: Benign. A letter regarding these results will be sent to the patient by the facility within 30 days. Approximately 10% of breast cancers are not detected by mammography. A normal mammogram should not delay biopsy of a clinically suspicious abnormality. [id number] Electronically Signed: Abrahan Munson MD at 11:03 EDT ,
--- OUTSIDE RECORDS SUMMARY | 2024-04-28 10:13 | XMS RPT_ITS | CCD ---
Author Organization [facility] Care Team Providers Care Tax Services Professional Name Role Phone Unavailable Primary Care Provider Unavailsandy e ANDREA BRUNNER Attending Unavailable ANDREA BRUNNER Referring Unavailable ANDREA BRUNNER Attending Unavailable Allergies Allergy Classification Reported Allergen(s) Allergy Type Date of Onset Reaction(s) Facility (3 sources) Acetaminophen / HYDROcodone; Translations: [HYDROCODONE-ACETA MINOPHEN] Drug Allergy 11-27-2015 GI Upset [facility] Work Phone: Medications Completed/Discontinued Medications Medication Drug Class(es) Dates Sig (Normalized) Sig (Original) bismuth subsalicylate 262 mg chewable tablet (1 source) Bismuth Start: 09-03-2023 take 2 tablets by mouth four times daily bismuth subsalicylate (PEPTO-BISMOL) 262 mg chewable tablet CHEW 2 TABLETS BY MOUTH 4 TIMES DAILY FOR 14 DAYS 0 09/03/2023 Active Comment on above: CHEW 2 TABLETS BY MO RUST 4 TIMES DAILY FOR 14 DAYS lansoprazole 30 mg delayed release oral capsule (1 source) Proton Pump Inhibitor Start: 09-01-2023 take 1 capsule by mouth every twelve hours lansoprazole (PREVACID) 30 mg capsule Take 1 capsule by mouth every 12 hours. 0 09/01/2023 Active Comment on above: Take 1 capsule by mo [facility] every 12 hours. metroNIDAZOLE 250 mg oral tablet (1 source) Nitroimidazole Antimicrobial Start: 09-06-2023 take 1 tablet by mouth four times daily metroNIDAZOLE (FLAGYL) 250 mg tablet TAKE 1 TABLET BY MOUTH 4 TIMES DAILY FOR 2 WEEKS 0 09/06/2023 Active Comment on above: [facility] DA[facility] FOR 2 WEEKS omeprazole 40 mg delayed release oral capsule (2 sources) Proton Pump Inhibitor Start: 04-30-2010 take 1 capsule by mouth once daily Omeprazole (PRILOSEC) 40 mg ORAL capsule Take one(1) capsule daily. 0 04/30/2010 Active Comment on above: Take one(1) capsule daily. PARoxetine hydrochloride 10 mg oral tablet (2 sources) Serotonin Reuptake Inhibitor Start: 04-30-2010 take 1 tablet by mouth once daily paroxetine (PAXIL) 10 mg ORAL tablet Take one(1) tablet daily. 0 04/30/2010 Active Comment on above: Take one(1) tablet d aily. tetracycline hydrochloride 500 mg oral capsule (1 source) Tetracycline-class Antimicrobial Start: 09-07-2023 take 1 capsule by mouth four times daily tetracycline (SUMYCIN) 500 mg cap TAKE 1 CAPSULE BY MOUTH 4 TIMES DAILY FOR 2 WEEKS 0 09/07/2023 Active Comment on above: TAKE 1 CAPSULE BY MO RUST 4 TIMES DAILY FOR 2 WEEKS Problems Active Problems Problem Classification Problem Date Documented Date Episodic/Chronic Other screening for suspected conditions (not mental disorders or infectious disease) (1 source) Encounter for screening for malignant neoplasm of vagina; Translations: [Screening for vaginal cancer] Onset: 07-12-2023 Episodic Residual codes; unclassified (1 source) Other specified personal risk factors, not elsewhere classified; Translations: [NETWORK LIAISON exam for high-risk Medicare patient] Onset: 07-12-2023 Episodic Sexually transmitted infections (not HIV or hepatitis) (2 sources) Human papilloma virus deoxyribonucleic acid test positive, high risk on vaginal specimen; Translations: [Vaginal high risk human papillomavirus (HPV) DNA test positive] Onset: 07-12-2023 09-13-2023 Episodic Past or Other Problems Problem Classification Problem Date Documented Date Episodic/Chronic Cancer of breast (3 sources) History of malignant neoplasm of breast; Translations: [Personal history of malignant neoplasm of breast] Onset: 04-22-2021 04-22-2021 Episodic Cancer of other female genital organs (4 sources) Low grade squamous intraepithelial lesion on vaginal Papanicolaou smear; Translations: [Low grade squamous intraepithelial lesion on cytologic smear of vagina (LGSIL)] Onset: 12-09-2015 03-22-2019 Episodic Other skin disorders (2 sources) Skin lesion; Translations: [Disorder of the skin and subcutaneous tissue, unspecified] Onset: 04-30-2010 04-30-2010 Episodic Results Test Name Value Interpretation Reference Range Facility CNOVon 09-13-2023 CNOV Office Visit (OBGYWM ) JERO MAIER ([id number]) 1940 F Date Time Provider Department 09/13/23 11:10 AM ANDREA BRUNNER OBGYWM During your visit today, we recorded the following information about you: Andrea Brunner MD 09/13/2023 4:58 PM Signed Jero is a 83 year old who presents today for a colposcopy. The patient's last pap smear was LGSIL and Positive HPV from July 2023. Patient has a history of abnormal pap: Yes. The patient has had prior treatment: s/p hyst. test: n/a UNIVERSAL PROTOCOL / SAFETY CHECKLIST Procedure to be Performed: colposcopy with possible biopsy of vagina Sign In: A Moment of CARE was completed. Personnel directly involved with the procedure wore the appropriate PPE (Personal Protective Equipment). Patient/Surrogate Stated/Verified: PATIENT VERIFIED(optional for EMERGENT procedures): Patient name, Date of , Relevant allergies, and The intended procedure Time Out Communication: Intended patient and procedure match the source documents. Consent documented and matches the intended procedure. No implant(s) inserted. Sign Out: SIGN OUT (optional for EMERGENT procedures): All specimen containers correctly labeled. All instruments, equipment, possible retained foreign bodies accounted for. Post-procedure follow-up management communicated and Plan of Care Visit completed when applicable. Andrea Brunner M.D. PROCEDURE: EXTERNAL GENITALIA: Normal in appearance without lesions VAGINA: Normal in appearance without lesions CERVIX: absent. . acetowhite changes noted at apex, , punctations noted -none, mosaicism noted none, and atypical vasculature noted -none. BIOPSY: Done at vaginal cuff, midlijne and right side ECC: not done HEMOSTASIS: Obtained with silver nitrate and pressure Procedure Summary: Patient tolerated procedure well and colposcopy was adequate. ASSESSMENT: HPV effect PLAN: Specimens labeled and sent to Pathology. Will notify patient of results in 1-2 weeks. Post-procedure instructions reviewed and written material given to the patient. MD Alexandria Dominguez Tab[place], MA 09/13/2023 11:31 AM Signed YOUR RECOVERY It may take a few weeks for your cervix to heal. While your cervix heals, you may have: - Vaginal bleeding (less than a normal menstrual period) - Mild cramping - A brown-black vaginal discharge (similar to coffee grounds) which is a result of the paste used to help stop bleeding from the procedure Do NOT put anything in the vagina for 1 week after your colposcopy if your doctor does a biopsy of your cervix. This includes sex, tampons, and douches. If you have any discomfort, you may take an over the counter pain medication (motrin, advil, ibuprofen, tylenol, etc). If this does not relieve your discomfort, contact your doctor's office for a prescription strength pain medication. It is okay to wear a sanitary pad until the discharge and spotting stops. RISKS Although problems seldom occur with colposcopy, there can be some complications. You may feel faint during and shortly after the procedure as well as have some bleeding and vaginal discharge after the procedure. There is also a risk of infection after the procedure. These complications are rare and can be easily treated. You should contact you doctor is you have any of the following: - Heavy bleeding (more than your normal period) - Bleeding with clots - Severe abdominal pain - Fever (more than 100.4F) - Foul smelling vaginal discharge RESULTS If a biopsy was taken, we will have the results of your biopsy in 1-2 weeks. If you do not hear the results of your biopsy after 2 weeks, please contact your physicians office for the results. Depending on the biopsy results, your doctor will determine your follow up plan which may include further testing or treatments. STAYING HEALTHY After the procedure, you will need to see your doctor for follow up visits during the year. At these visits your doctor will check the health of your cervix with a pap smear. After three normal pap smears, your doctor will allow you to return to having exams once a year. If you have another abnormal pap smear, you may need closer follow up for longer or you may need additional treatment. By making a few lifestyle changes after the procedure, you can help protect the health of your cervix: - Have regular pelvic exams and pap smears as ordered by your doctor. - Stop smoking as smoking increases your risk of developing a cancer of the cervix - If you have more than one sexual partner, limit your number of partners and use condoms to reduce your risks of STDs. If you have any additional questions, please contact your doctor's office. Referring Provider: ANDREA BRUNNER [[id number]] Allergies As of Date: 09/13/2023 Noted Allergy Reaction VICODIN (HYDROCODO (more content not included)... Normal [facility] SURGICAL PATHOLOGYon 024 CASE REPORT Normal [facility] Comment on above: Order Comment: Speci men Type: TISSUE SPECIMEN Ordering Facility: [facility] Address: [address] [place] [address] Result Comment: Surg ical Pathology Report Case: [id number] Authorizing Provider: Andrea Brunner MD Collected: 09/13/2023 12:24 PM Ordering Location: OB/Gynecology Received: 09/13/2023 03:29 PM Pathologist: Antonio Muhammad MD Specimens: A) - VAGINA BIOPSY, midline of vaginal cuff B) - VAGINA BIOPSY, right vaginal cuff Performed By: #### S #### [facility] CLIA [id number] [address] [place] [address] [place] CLINICAL HISTORY LGSIL and HPV POS of Vagina Normal [facility] Comment on above: Order Comment: Speci men Type: TISSUE SPECIMEN Ordering Facility: [facility] Address: [address] [place] [address] Performed By: #### S #### [facility] CLIA [id number] [address] [place] [address] [place] FINAL DIAGNOSIS Normal [facility] Comment on above: Order Comment: Speci men Type: TISSUE SPECIMEN Ordering Facility: [facility] Address: [address] [place] [address] Result Comment: A. M idline of vaginal cuff, biopsy: - Benign squamous mucosa. B. Right vaginal cuff, biopsy: - Low-grade squamous intraepithelial lesion. ACV/mm/09/14/2023 Performed By: #### S #### [facility] CLIA [id number] [address] [place] [address] [place] FINAL PERFORMING LAB Normal [facility] Comment on above: Order Comment: Speci men Type: TISSUE SPECIMEN Ordering Facility: [facility] Address: [address] [place] [address] Result Comment: Diag nostic interpretation performed at [place] [address] CLIA# [id number] Rod Pointer: Mykel Ferreira M.D. Performed By: #### S #### [facility] CLIA [id number] [address] [place] [address] GROSS DESCRIPTION Normal [facility] Comment on above: Order Comment: Speci men Type: TISSUE SPECIMEN Ordering Facility: [facility] Address: [address] [place] [address] Result Comment: A. V AGINA BIOPSY Received in formalin are multiple pieces of smith-white, soft tissue aggregating to 0.6 x 0.1 x 0.1 cm. Totally submitted in one cassette. B. VAGINA BIOPSY Received in formalin is one piece of smith-white, soft tissue measuring 0.4 x 0.1 x 0.2 cm. Totally submitted in one cassette. 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 Denies vaginal bleeding. Not currently sexually active. Postmenopausal: yes HRT use: No. 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 still has ovaries FAMILY HISTORY Problem Relation [...] external genitalia normal, normal Bartholin's glands, urethra, [place]'s glands, no vulvar lesions, good vaginal support, [...] up one year or sooner as needed MD Kb Dominguez Rebecca L, MD 07/15/2023 11:38 AM Signed Addended by: ANDREA BRUNNER on: 07/15/2023 11:38 AM Modules accepted: Orders Referring Provider: ANDREA BRUNNER [[id number]] Allergies As of Date: 07/12/2023 Noted Allergy Reaction VICODIN (HYDROCODONE-ACETAMINO PHE*11/27/2015 8 - GI Upset Comments: Vomiting Date Reviewed: 07/12/2023 Reviewed by: Andrea Brunner MD - Fully Assessed Reason for Visit: Yearly Exam [187] Primary Visit Diagnosis:NETWORK LIAISON exam for high-risk Medicare patient [Z91.89] Other Visit Diagnoses:History of breast cancer [Z85.3] Screening for vaginal cancer [Z12.72] Vaginal Pap smear with LGSIL [R87.622] Vaginal high risk human papillomavirus (HPV) DNA test positive [R87.811] Order(s):PAP TEST [[id number]] Order #: [id number]. #:[id number] HPV W/GENOTYPE THIN PREP [[id number]] Reflex Order#: [id number] (Ord#:[id number])Spec. #:[id number] COLPOSCOPY [[id number]] Reflex Order#: [id number] (Ord#:[id number]) Prescriptions as of 07/15/2023 - paroxetine (PAXIL) 10 mg ORAL tablet Take one(1) tablet daily. - O (more content not included)... Normal [facility] HPV W/GENOTYPE THIN PREPon 0 07-12-2023 HPV 16 Ag Ql (Unsp spec) Negative Normal Negative for HPV DNA high risk type 16 by PCR [facility] Comment on above: Order Comment: Speci men Type: FLUID SPECIMEN Ordering Facility: [facility] Address: [address] [place] [address] Performed By: #### H PVHRT #### [facility] CLIA [id number] [address] [place] [address] [place] HPV 18 Ag Ql (Unsp spec) Negative Normal Negative for HPV DNA high risk type 18 by PCR [facility] Comment on above: Order Comment: Speci men Type: FLUID SPECIMEN Ordering Facility: [facility] Address: [address] [place] [address] Performed By: #### H PVHRT #### [facility] CLIA [id number] [address] [place] [address] [place] HPV 31+33+35+39+45+51+52 +56+58+59+66+68 DNA JASPAL+probe Ql (Cvx) Positive for one or more of the following HPV DNA high risk types:31,33,35,39,45,5 1,52,56,58,59,66,68 by PCR Abnormal Negative for HPV DNA high risk types: 31,33,35,39,45 ,51,52,56,58,5 9,66,68 by PCR. [facility] Comment on above: Order Comment: Speci men Type: FLUID SPECIMEN Ordering Facility: [facility] Address: [address] [place] [address] Performed By: #### H PVHRT #### [facility] CLIA [id number] [address] [place] [address] [place] PAP TESTon 07-12-2023 ADEQUACY Satisfactory for interpretation Normal [facility] Comment on above: Order Comment: Speci men Type: FLUID SPECIMEN Ordering Facility: [facility] Address: [address] [place] [address] Performed By: #### L [id number] #### [facility] CLIA [id number] [address] [place] [address] [place] CASE REPORT Normal [facility] Comment on above: Order Comment: Speci men Type: FLUID SPECIMEN Ordering Facility: [facility] Address: [address] [place] [address] Result Comment: Gyne cologic Cytology Report Case: [id number] Authorizing Provider: Andrea Brunner MD Collected: 07/12/2023 11:26 AM Ordering Location: OB/Gynecology Received: 07/12/2023 12:04 PM First Screen: Kaye Traore, [place], ASCP Pathologist: Cee Toussaint MD Specimen: Pap Test, ThinPrep, Vaginal Performed By: #### L [id number] #### [facility] CLIA [id number] [address] [place] [address] [place] CLINICAL HISTORY, CYTOLOGY, NETWORK LIAISON Hysterectomy, Total Normal [facility] Comment on above: Order Comment: Speci men Type: FLUID SPECIMEN Ordering Facility: [facility] Address: [address] [place] [address] Result Comment: hx V AIN 1 Performed By: #### L [id number] #### [facility] CLIA [id number] [address] [place] [id number] [place] FINAL PERFORMING LAB Normal [facility] Comment on above: Order Comment: Speci men Type: FLUID SPECIMEN Ordering Facility: [facility] Address: [address] [place] [address] Result Comment: Tech nical component, environmental change analyst screening performed at [facility], [facility] [place] [address] CLIA# [id number] Diagnostic interpretation performed at [facility], [address] [place] [address] CLIA# [id number] Rod Pointer: Mykel Ferreira M.D. Performed By: #### L [id number] #### [facility] CLIA [id number] [address] [place] [address] [place] HPV REFLEX Yes HPV Normal [facility] Comment on above: Order Comment: Speci men Type: FLUID SPECIMEN Ordering Facility: [facility] Address: [address] [place] [address] Performed By: #### L [id number] #### [facility] CLIA [id number] [address] [place] [address] [place] INTERPRETATION, CYTOLOGY, NETWORK LIAISON Abnormal [facility] Comment on above: Order Comment: Speci men Type: FLUID SPECIMEN Ordering Facility: [facility] Address: [address] [place] [address] Result Comment: Low grade squamous intraepithelial lesion (LSIL). Performed By: #### L [id number] #### [facility] CLIA [id number] [address] [place] [address] [place] PAP DISCLAIMER COMMENT The Pap Smear is a screening test for cervical cancer. False negative results occur with all screening tests, emphasizing the need for rescreening at recommended intervals, and clinical correlation. Normal [facility] Comment on above: Order Comment: Speci men Type: FLUID SPECIMEN Ordering Facility: [facility] Address: [address] [place] [address] Performed By: #### L [id number] #### [facility] CLIA [id number] [address] [place] [address] [place] PAP GENERAL CATEGORIZATION Epithelial Cell Abnormality Normal [facility] Comment on above: Order Comment: Speci men Type: FLUID SPECIMEN Ordering Facility: [facility] Address: [address] [place] [address] Performed By: #### L [id number] #### [facility] CLIA [id number] [address] [place] [address] [place] PAP PHOTOLITHOGRAPHER COMMENT This specimen has be en analyzed by the ThinPrep Imaging System, an automated imaging and review system, which assists the laboratory in evaluating cells on ThinPrep Pap tests. Following automated imaging, selected abdi from every slide are reviewed by a environmental change analyst. Normal [facility] Comment on above: Order Comment: Speci men Type: FLUID SPECIMEN Ordering Facility: [facility] Address: [address] [place] [address] Performed By: #### L [id number] #### [facility] CLIA [id number] [address] [place] [address] [place] Encounters Encounter Date Encounter Type Care Provider Facility Start: 09-13-2023 End: 09-13-2023 ambulatory ANDREA BRUNNER Facility:[facility] Start: 09-13-2023 End: 09-13-2023 Patient encounter procedure Andrea Brunner MD Work Phone: OB/Gynecology Comment on above: Vaginal Pap smear wi th LGSIL (Primary Dx); Vaginal high risk human papillomavirus (HPV) DNA test positive Start: 07-12-2023 End: 07-13-2023 ambulatory ANDREA BRUNNER Facility:[facility] Start: 06-15-2022 Telephone encounter Andrea Brunner MD Work Phone: OB/Gynecology Comment on above: Results Plan of Treatment Date Care Activity Detail Author Start: 07-05-2023 Advance Directive Discussion Advance Directive Discussion [facility] Start: 07-05-2023 Depression Assessment Depression Assessment [facility] Start: 03-05-2023 Covid-19 Vaccine ( season) Covid-19 Vaccine ( season) [facility] Start: 03-05-2023 Influenza vaccination Influenza Vaccine (#1) [facility] Start: 03-05-2022 Influenza vaccination INFLUENZA (#1) [facility] Start: 09-11-2021 COVID-19 VACCINE (4 - Booster for Pfizer series) COVID-19 VACCINE (4 - Booster for Pfizer series) [facility] Start: 07-05-2021 ADVANCE DIRECTIVE DISCUSSION ADVANCE DIRECTIVE DISCUSSION [facility] Start: 07-05-2021 DEPRESSION ASSESSMENT DEPRESSION ASSESSMENT [facility] Start: 07-05-2014 Pneumococcal Vaccine: 65+ (2 of 2 - PCV) Pneumococcal Vaccine: 65+ (2 of 2 - PCV) [facility] Start: 07-05-2014 PNEUMOCOCCAL: 65+ (2 - PCV) PNEUMOCOCCAL: 65+ (2 - PCV) [facility] Start: 08-30-2007 SHINGRIX VACCINE (2 of 3) SHINGRIX VACCINE (2 of 3) [facility] Start: 2004 BONE DENSITY BONE DENSITY [facility] Start: 2004 Screening for osteoporosis Bone Density Screening [facility] Start: 1999 RSV Vaccine (1 - 1-dose 60+ series) RSV Vaccine (1 - 1-dose 60+ series) [facility] Start: 1984 DIABETES SCREEN DIABETES SCREEN [facility] Start: 1984 Diabetes Screening Diabetes Screening [facility] Start: 1958 Urine microalbumin profile [facility] SURGICAL PATHOLOGY SURGICAL PATH OLOGY Lab Routine Vaginal Pap smear with LGSIL Vaginal high risk human papillomavirus (HPV) DNA test positive 09/13/2023 12:24 PM EDT [facility] Work Phone: Immunizations Immunization Date Immunization Notes Care Provider Lamar blankenship 07-05-2013 pneumococcal polysaccharide vaccine, 23 valent Andrea Brunner MD Work Phone: [facility] 07-05-2007 zoster vaccine, live Andrea Brunner MD Work Phone: [facility] Payers Date Payer Category Payer Medicare MMO MEDICARE MMO [employer] HMO [id number] 2015-Present [phone] [address] [place] [address] [facility] [id number] 2015 Unknown [id number] Social History Date Type Detail Facility Start: 06-09-2022 [facility] End: 11-07-1983 History of tobacco use Current smoker [facility] End: 11-07-1983 History of tobacco use Cigarette Smoker [facility] Start: 06-09-2022 Tobacco use and exposure Smoke less tobacco non-user [facility] Start: 06-09-2022 End: 09-13-2023 Alcohol intake Current non-drinker of alcohol (finding) [facility] Start: 1940 Sex Assigned At Not on file C [facility] Start: 07-12-2023 End: 09-13-2023 History of Social function [facility] Start: 07-12-2023 End: 09-13-2023 Tobacco use panel [facility] National Score (1-10 0), lower number is lower risk 75 [facility] [facility] note 09-13-2023 Note Date & Type Note Facility 09-13-2023 Note HNO ID: [id number] Author: ANDREA BRUNNER MD Service: ? Author Type: Physician Type: Progress Notes Filed: 09/13/2023 16:58 Note Text: Jero is a 83 year old who presents today for a colposcopy. The patient's last pap smear was LGSIL and Positive HPV from July 2023. Patient has a history of abnormal pap: Yes. The patient has had prior treatment: s/p hyst. test: n/a UNIVERSAL PROTOCOL / SAFETY CHECKLIST Procedure to be Performed: colposcopy with possible biopsy of vagina Sign In: A Moment of CARE was completed. Personnel directly involved with the procedure wore the appropriate PPE (Personal Protective Equipment). Patient/Surrogate Stated/Verified: PATIENT VERIFIED(optional for EMERGENT procedures): Patient name, Date of , Relevant allergies, and The intended procedure Time Out Communication: Intended patient and procedure match the source documents. Consent documented and matches the intended procedure. No implant(s) inserted. Sign Out: SIGN OUT (optional for EMERGENT procedures): All specimen containers correctly labeled. All instruments, equipment, possible retained foreign bodies accounted for. Post-procedure follow-up management communicated and Plan of Care Visit completed when applicable. Andrea Brunner M.D. PROCEDURE: EXTERNAL GENITALIA: Normal in appearance without lesions VAGINA: Normal in appearance without lesions CERVIX: absent. . acetowhite changes noted at apex, , punctations noted -none, mosaicism noted none, and atypical vasculature noted -none. BIOPSY: Done at vaginal cuff, midlijne and right side ECC: not done HEMOSTASIS: Obtained with silver nitrate and pressure Procedure Summary: Patient tolerated procedure well and colposcopy was adequate. ASSESSMENT: HPV effect PLAN: Specimens labeled and sent to Pathology. Will notify patient of results in 1-2 weeks. Post-procedure instructions reviewed and written material given to the patient. Andrea Brunner MD [facility] History of Present illness Narrative 09-13-2023 Andrea Brunner MD - 09/13/2023 11:31 AM EDT Note Date & Type Note Facility 09-13-2023 History of Presen t illness Narrative Jero is a 83 year old who presents today for a colposcopy. The patient's last pap smear was LGSIL and Positive HPV from July 2023. Patient has a history of abnormal pap: Yes. The patient has had prior treatment: s/p hyst. test: n/a UNIVERSAL PROTOCOL / SAFETY CHECKLIST Procedure to be Performed: colposcopy with possible biopsy of vagina Sign In: A Moment of CARE was completed. Personnel directly involved with the procedure wore the appropriate PPE (Personal Protective Equipment). Patient/Surrogate Stated/Verified: PATIENT VERIFIED(optional for EMERGENT procedures): Patient name, Date of , Relevant allergies, and The intended procedure Time Out Communication: Intended patient and procedure match the source documents. Consent documented and matches the intended procedure. No implant(s) inserted. Sign Out: SIGN OUT (optional for EMERGENT procedures): All specimen containers correctly labeled. All instruments, equipment, possible retained foreign bodies accounted for. Post-procedure follow-up management communicated and Plan of Care Visit completed when applicable. Andrea Brunner M.D. PROCEDURE: EXTERNAL GENITALIA: Normal in appearance without lesions VAGINA: Normal in appearance without lesions CERVIX: absent. . acetowhite changes noted at apex, , punctations noted -none, mosaicism noted none, and atypical vasculature noted -none. BIOPSY: Done at vaginal cuff, midlijne and right side ECC: not done HEMOSTASIS: Obtained with silver nitrate and pressure Procedure Summary: Patient tolerated procedure well and colposcopy was adequate. ASSESSMENT: HPV effect PLAN: Specimens labeled and sent to Pathology. Will notify patient of results in 1-2 weeks. Post-procedure instructions reviewed and written material given to the patient. Andrea rBunner MD documented in this encounter [facility] Instructions 09-13-2023 Patient Instructions Note Date & Type Note Facility 09-13-2023 Instructions Alexandria IrisLEON - 09/13/2023 11:31 AM EDT YOUR RECOVERY It may take a few weeks for your cervix to heal. While your cervix heals, you may have: - Vaginal bleeding (less than a normal menstrual period) - Mild cramping - A brown-black vaginal discharge (similar to coffee grounds) which is a result of the paste used to help stop bleeding from the procedure Do NOT put anything in the vagina for 1 week after your colposcopy if your doctor does a biopsy of your cervix. This includes sex, tampons, and douches. If you have any discomfort, you may take an over the counter pain medication (motrin, advil, ibuprofen, tylenol, etc). If this does not relieve your discomfort, contact your doctor's office for a prescription strength pain medication. It is okay to wear a sanitary pad until the discharge and spotting stops. RISKS Although problems seldom occur with colposcopy, there can be some complications. You may feel faint during and shortly after the procedure as well as have some bleeding and vaginal discharge after the procedure. There is also a risk of infection after the procedure. These complications are rare and can be easily treated. You should contact you doctor is you have any of the following: - Heavy bleeding (more than your normal period) - Bleeding with clots - Severe abdominal pain - Fever (more than 100.4F) - Foul smelling vaginal discharge RESULTS If a biopsy was taken, we will have the results of your biopsy in 1-2 weeks. If you do not hear the results of your biopsy after 2 weeks, please contact your physicians office for the results. Depending on the biopsy results, your doctor will determine your follow up plan which may include further testing or treatments. STAYING HEALTHY After the procedure, you will need to see your doctor for follow up visits during the year. At these visits your doctor will check the health of your cervix with a pap smear. After three normal pap smears, your doctor will allow you to return to having exams once a year. If you have another abnormal pap smear, you may need closer follow up for longer or you may need additional treatment. By making a few lifestyle changes after the procedure, you can help protect the health of your cervix: - Have regular pelvic exams and pap smears as ordered by your doctor. - Stop smoking as smoking increases your risk of developing a cancer of the cervix - If you have more than one sexual partner, limit your number of partners and use condoms to reduce your risks of STDs. If you have any additional questions, please contact your doctor's office. documented in this encounter [facility] Progress note 07-12-2023 Note Date & Type Note Facility 07-12-2023 Note HNO ID: [id number] Author: ANDREA BRUNNER MD Service: ? 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 Denies vaginal bleeding. Not currently sexually active. Postmenopausal: yes HRT use: No. 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 [address] [facility] [address] [facility] [place] [address] Referral ID Status Reason Start Date Expiration Date V isits Requested Visits Authorized [id number] Closed Auto-Generate d Referral 07/15/2023 07/14/2024 1 1 [facility] Summary Purpose Family History No Family [...] or prosecute any alcohol or drug abuse patient.[facility] the event this information is protected by the Federal Confidentiality of Alcohol and Drug Abuse Patient Records regulations: The Federal rules restrict any use of the information to criminally investigate or prosecute any alcohol or drug abuse patient.[facility] Reason for Visit (unrecogniz ed section and content) Reason Comments Results INFORMATION SOURCE (unrecogn ized section and content) DATE CREATED AUTHOR 09/15/2023 [facility] FOR RECORDS PERTAINING TO PATIENTS WHO ARE [...] BE BASED ON THE PRIMARY CLINICAL RECORDS. [facility]. provides no warranty or guarantee of the accuracy or completeness of information in this document.
== END | disposition home or self-care (01) ==
LOC: OPBI 09:49
PROVIDERS: PCP Family Medicine; Referring Provider Family Medicine; Visit Provider Family Medicine
DX: Z12.31 Encounter for screening mammogram for malignant neoplasm of breast (principal); Z85.3 Personal history of malignant neoplasm of breast
CPT/HCPCS: 77063; 77067

== ENCOUNTER → 2025-01-09 | Outpatient (CLI) | payer MEDICARE, SELFPAY ==
[2024-01-17 15:58] VITALS: BMI 34.5
[2025-01-09 09:15] LABS: Hematocrit 39.4 % (37-47); Hemoglobin 13.2 g/dL (12.0-15.0); Immature Granulocytes Count 0.010 X10^3/uL (0.0-0.0); Mean Corp Hgb Conc 33.5 g/dL (32-36); Mean Corpuscular Volume 91.2 fL (81-99); Mean Platelet Vol. 9.9 fl (6.2-12.0); NRBC Flagged by Analyzer 0 % (0-5); Platelet Count 251 K/mm3 (150-450); RBC Distribution Width CV 12.4 % (11.6-14.6); RBC Distribution Width SD 41.1 fl (35.1-43.9); Red Blood Count 4.32 M/mm3 (4.2-5.4); White Blood Count 6.9 K/mm3 (4.4-11.0)
[2025-01-09 09:49] LABS: AST(SGOT) 30 U/L (<=31); Alanine Aminotransfer ALT/SGPT 21 U/L (<=34); Albumin, Serum 4.5 g/dL (3.4-4.8); Alkaline Phosphatase 63 U/L (35-104); Anion Gap 10 (5-15); BUN 19 mg/dL (4-19); BUN/Creat Ratio 21.2 RATIO (10-20); Calcium,Total 9.9 mg/dL (7.6-11.0); Carbon Dioxide 21.4 mmol/L (21.0-32.0); Chloride 103 mmol/L (98-108); Globulin 2.9 g/dL (2.2-4.2); Glucose 102 mg/dL (70-99); LDH 179 U/L (84-246); Potassium 4.4 mmol/L (3.3-5.1)
[2025-01-09 17:11] LABS: Xtra Tube EP Lab EXTRA TUBE
[2025-01-10 05:07] LABS: CA 15-3 39.3 U/mL (0.0-25.0); CA 27.29 69.1 U/mL (0.0-38.6)
== END | disposition home or self-care (01) ==
LOC: PAVLAB 08:57
PROVIDERS: PCP Family Medicine; Referring Provider Internal Medicine Medical Oncology; Visit Provider Internal Medicine Medical Oncology
DX: Z85.3 Personal history of malignant neoplasm of breast (principal)
CPT/HCPCS: 36415; 80053; 83615; 85025; 86300

== ENCOUNTER → 2025-05-29 | Outpatient (CLI) | payer MEDICARE, SELFPAY ==
[2024-01-17 15:58] VITALS: BMI 34.5
--- NOTE | 2025-05-29 09:35 | BI_ITS ---
EXAM: SCRN MAMM (CAD)W/JERICA BILAT DATE: 05/29/2025 CLINICAL HISTORY: F, Age 85 y/o , SCREENING. Personal history of right breast cancer. She had a right lumpectomy with radiation therapy. TECHNIQUE: Procedure Code: [id number] Modality: MG Procedure: SCRN MAMM (CAD)W/JERICA BILAT COMPARISON: Prior exam(s) dated 04/28/2024, 04/27/2023, and 04/24/2022.. FINDINGS: TISSUE DENSITY: There are scattered areas of fibroglandular density. Bilateral Breast Mammographic Findings: Subtle architectural distortion and increased density is seen in the right breast of the postlumpectomy and postradiation site. This area appears stable. Benign vascular calcifications and round calcifications are seen in the right breast. Radiopaque clips are seen in the right breast. The biopsies were benign. The post biopsy sites appear stable. There is no mammographic abnormality in the right breast to suggest new or recurrent malignancy. Stable nodular masslike densities are seen in the left breast. Benign vascular calcifications and round microcalcifications are seen in the left breast. There are no suspicious masses, suspicious clusters of microcalcifications, architectural distortion or secondary signs of malignancy identified in the left breast. BI/SCRN MAMM (CAD)W/JERICA BILAT IMPRESSION: Benign screening mammogram OVERALL FINAL ASSESSMENT BI-RADS 2: BENIGN RECOMMENDATION: Routine annual follow-up in 1 Year Additional Recommendation none A letter with findings and recommendations will be mailed to the patient. Reading Location: [id number]
== END | disposition home or self-care (01) ==
PROVIDERS: PCP Family Medicine; Referring Provider Family Medicine; Visit Provider Family Medicine
DX: Z12.31 Encounter for screening mammogram for malignant neoplasm of breast (principal)
CPT/HCPCS: 77063; 77067